=== PATIENT | female | born 1940 | race Caucasian/White ===

== ENCOUNTER 2017-03-07 22:11 | Inpatient (IN) | payer MEDICAID, MEDICARE ==
[~2017-03-07] VITALS: Ht 152.4 cm; Wt 74.9 kg
[~2017-03-07 22:11] MED LIST: ASPI-1159 PO; Aspirin PO; CLOP75TA33 PO; GABA-529 PO; LEVO50TA8 PO; LIP40 PO; MELO-106 PO; METO50TA5 PO; NITR0.4T SL; OMEP40CA34 PO; POTA10CA42 PO; PRED5DRO7 LEFTEYE; PRED5TAB48 PO
[2017-03-07] MEDS ORDERED: NITROGLYCERIN OINT 1GM/INCH UDPKT TD ONE (22:30)
[2017-03-07] MEDS ORDERED: ASPIRIN 81MG TABLET PO ONE (22:30)
[2017-03-07] MEDS ORDERED: MORPHINE SULFATE 2 MG/ML CPJ (NOT FOR IM USE) IV STA (22:59)
[2017-03-07 23:10] LABS: CLARITY URINE CLEAR (CLEAR); COLOR URINE YELLOW (YELLOW); GLUCOSE URINE NEGATIVE (NEGATIVE); KETONES URINE NEGATIVE (NEGATIVE); LEUKOCYTE ESTERASE URINE 2+ (NEGATIVE); NITRITE URINE NEGATIVE (NEGATIVE); OCCULT BLOOD URINE NEGATIVE (NEGATIVE); PROTEIN URINE NEGATIVE (NEGATIVE); SPECIFIC GRAVITY URINE 1.019 (1.005-1.030); UROBILINOGEN URINE 0.2 E.U./dL (0.2-1.0)
[2017-03-07 23:22] LABS: *AMPHETAMINES SCREEN URINE NEGATIVE (NEGATIVE); *BARBITURATES SCREEN URINE NEGATIVE (NEGATIVE); *BENZODIAZEPINES SCREEN URINE NEGATIVE (NEGATIVE); *COCAINE SCREEN URINE NEGATIVE (NEGATIVE); CANNABINOID URINE SCREEN NEGATIVE (NEGATIVE); METHADONE URINE SCREEN NEGATIVE (NEGATIVE); OPIATES URINE SCREEN PRESUMTIVE POSITIVE (NEGATIVE); PHENCYCLIDINE URINE SCREEN NEGATIVE (NEGATIVE)
[2017-03-07] MEDS ORDERED: MORPHINE SULFATE 10 MG/ML CPJ IV STA (23:22)
[2017-03-07 23:33] LABS: BASOPHILS % 0.6 % (0.0-2.0); EOSINOPHILS % 1.6 % (0.0-5.0); HEMOGLOBIN. 12.3 g/dL (12.0-16.0); LYMPHOCYTES % 16.1 % (20.0-50.0); MEAN CORPUSCULAR HEMOGLOBIN 31.2 pg (28.0-32.0); MEAN CORPUSCULAR VOLUME 94.1 fL (81.0-99.0); MEAN PLATELET VOLUME 8.4 fl (7.4-10.4); MONOCYTES % 9.8 % (2.0-8.0); NEUTROPHILS % 71.9 % (40.0-76.0); PLATELET 232 x1000/uL (130-400); RED BLOOD CELL COUNT 3.93 mill/uL (4.2-5.4); RED CELL DISTRIBUTION WIDTH 15.8 % (11.6-14.6)
[2017-03-07 23:44] LABS: INR 1.1; PROTHROMBIN TIME 11.2 sec (9.4-11.6)
[2017-03-07 23:45] LABS: CARBON DIOXIDE 26 mEq/L (21-32); CHLORIDE 104 mEq/L (98-107); ETHANOL BLOOD < 10 mg/dL; TROPONIN I < 0.02 ng/mL (0.00-0.04)
[2017-03-08] VITALS (8 sets, daily range): BP systolic 112–124; BP diastolic 63–78
[2017-03-08] MEDS ORDERED: LEVOFLOXACIN 750MG PREMIX 150 ML IV NR
[2017-03-08] MEDS ORDERED: ACETAMINOPHEN 325MG TABLET PO PRN ×2 (06:15→06:30)
[2017-03-08] MEDS ORDERED: DEXTROSE 50% WATER 50ML SYRINGE IV PRN (06:15)
[2017-03-08] MEDS ORDERED: BENA20TA3 PO (06:44)
[2017-03-08] MEDS ORDERED: NITROGLYCERIN 0.4MG TABLET SL SL PRN (06:45)
[2017-03-08] MEDS: INSULIN LISPRO 100 UNITS/ML SUBCUT SCH ×4 (08:10→21:00)
[2017-03-08] MEDS: OMEPRAZOLE 20MG CAPSULE EXTENDED RELEASE PO SCH (08:26)
[2017-03-08] MEDS: LEVOTHYROXINE SODIUM 50MCG TABLET PO SCH (08:26)
[2017-03-08] MEDS: CLOPIDOGREL 75MG TABLET PO SCH (08:26)
[2017-03-08] MEDS: POTASSIUM CHLORIDE 8 MEQ TABLET.SA PO SCH (08:27)
[2017-03-08] MEDS: BENAZEPRIL 20MG TABLET PO SCH (08:27)
[2017-03-08] MEDS: METOPROLOL TARTRATE 50MG TABLET PO SCH ×2 (08:28→21:18)
[2017-03-08] MEDS: ASPIRIN 81MG EC TABLET PO SCH (08:28)
[2017-03-08] MEDS: PREDNISONE 5MG TABLET PO SCH (08:28)
[2017-03-08] MEDS: BLOOD SUGAR DIAGNOSTIC STRIP TEST SCH ×4 (08:37→21:08)
[2017-03-08] MEDS: GABAPENTIN 100MG CAPSULE PO SCH ×2 (08:37→18:14)
[2017-03-08] MEDS ORDERED: NON FORMULARY PATIENT HOME MED EA PO SCH (09:00)
[2017-03-08] MEDS ORDERED: MEDICATION NOT ON FORMULARY EA (Prednisone 5 MG) PO SCH (09:00)
[2017-03-08] MEDS ORDERED: MEDICATION NOT ON FORMULARY EA (Omeprazole 40 MG) PO SCH (09:00)
[2017-03-08] MEDS ORDERED: ENOXAPARIN 80MG/0.8ML SYR SUBCUT SCH (09:05)
[2017-03-08 10:17] LABS: BASOPHILS % 0.6 % (0.0-2.0); EOSINOPHILS % 2.7 % (0.0-5.0); HEMOGLOBIN. 11.7 g/dL (12.0-16.0); LYMPHOCYTES % 17.2 % (20.0-50.0); MEAN CORPUSCULAR HEMOGLOBIN 30.6 pg (28.0-32.0); MEAN CORPUSCULAR VOLUME 94.4 fL (81.0-99.0); MEAN PLATELET VOLUME 8.4 fl (7.4-10.4); NEUTROPHILS % 70.5 % (40.0-76.0); PLATELET 221 x1000/uL (130-400); RED BLOOD CELL COUNT 3.81 mill/uL (4.2-5.4)
[2017-03-08 10:34] LABS: CARBON DIOXIDE 27 mEq/L (21-32); CHLORIDE 103 mEq/L (98-107); CREATINE KINASE 50 IU/L (26-192); CREATINE KINASE MB FRACTION 0.8 ng/mL (0.5-3.6); HDL CHOLESTEROL 40 mg/dL (40-59); LDL CHOLESTEROL 66 mg/dL (5-100); TROPONIN I < 0.02 ng/mL (0.00-0.04)
[2017-03-08] MEDS: HYDROCODONE/ACETAMINOPHEN 5/325MG TABLET PO PRN ×3 (12:47→23:29)
[2017-03-08 17:00] LABS: CREATINE KINASE 65 IU/L (26-192); CREATINE KINASE MB FRACTION 0.9 ng/mL (0.5-3.6); TROPONIN I < 0.02 ng/mL (0.00-0.04)
[2017-03-08] MEDS: SODIUM CHLORIDE 0.9% 1,000 ML IV SCH (21:18)
[2017-03-08] MEDS: ATORVASTATIN CALCIUM 40MG TABLET PO SCH (21:18)
[2017-03-08] MEDS ORDERED: LEVOFLOXACIN 250MG PREMIX 50 ML IV SCH (23:00)
[2017-03-09 04:00] VITALS: BP 149/74
[2017-03-09] MEDS: HYDROCODONE/ACETAMINOPHEN 5/325MG TABLET PO PRN ×4 (05:20→19:42)
[2017-03-09 06:45] LABS: PHOSPHORUS 2.5 mg/dL (2.5-4.9)
[2017-03-09 06:47] LABS: BASOPHILS % 0.4 % (0.0-2.0); EOSINOPHILS % 3.2 % (0.0-5.0); HEMATOCRIT. 33.5 % (36.0-48.0); LYMPHOCYTES % 20.4 % (20.0-50.0); MEAN CORPUSCULAR HEMOGLOBIN 30.8 pg (28.0-32.0); MEAN CORPUSCULAR VOLUME 94.3 fL (81.0-99.0); MEAN PLATELET VOLUME 8.8 fl (7.4-10.4); MONOCYTES % 8.5 % (2.0-8.0); NEUTROPHILS % 67.5 % (40.0-76.0); PLATELET 196 x1000/uL (130-400); RED BLOOD CELL COUNT 3.56 mill/uL (4.2-5.4); RED CELL DISTRIBUTION WIDTH 16.6 % (11.6-14.6)
[2017-03-09 07:30] VITALS: BP 123/56
[2017-03-09] MEDS: BLOOD SUGAR DIAGNOSTIC STRIP TEST SCH ×4 (07:40→20:37)
[2017-03-09] MEDS: INSULIN LISPRO 100 UNITS/ML SUBCUT SCH ×4 (08:10→20:37)
[2017-03-09] MEDS: PREDNISONE 5MG TABLET PO SCH (08:53)
[2017-03-09] MEDS: METOPROLOL TARTRATE 50MG TABLET PO SCH ×2 (08:53→20:37)
[2017-03-09] MEDS: CLOPIDOGREL 75MG TABLET PO SCH (08:53)
[2017-03-09] MEDS: ASPIRIN 81MG EC TABLET PO SCH (08:54)
[2017-03-09] MEDS: GABAPENTIN 100MG CAPSULE PO SCH ×2 (08:54→17:41)
[2017-03-09] MEDS: BENAZEPRIL 20MG TABLET PO SCH (08:54)
[2017-03-09] MEDS: POTASSIUM CHLORIDE 8 MEQ TABLET.SA PO SCH (08:54)
[2017-03-09] MEDS: LEVOTHYROXINE SODIUM 50MCG TABLET PO SCH (08:54)
[2017-03-09] MEDS: OMEPRAZOLE 20MG CAPSULE EXTENDED RELEASE PO SCH (08:55)
[2017-03-09] MEDS: ENOXAPARIN 80MG/0.8ML SYR SUBCUT SCH (08:57)
[2017-03-09 12:00] VITALS: BP 122/53
[2017-03-09 16:00] VITALS: BP 124/52
[2017-03-09] MEDS: SODIUM CHLORIDE 0.9% 1,000 ML IV SCH (16:18)
[2017-03-09] MEDS ORDERED: LACTULOSE 20G/30ML UDC PO PRN (17:00)
[2017-03-09 19:40] VITALS: BP 122/62
[2017-03-09] MEDS: ATORVASTATIN CALCIUM 40MG TABLET PO SCH (20:37)
[2017-03-09] MEDS ORDERED: LEVOFLOXACIN 250MG TABLET PO SCH (21:00)
[2017-03-10] VITALS: BP 118/59
[2017-03-10 03:23] VITALS: BP 109/61
[2017-03-10] MEDS: HYDROCODONE/ACETAMINOPHEN 5/325MG TABLET PO PRN ×2 (03:25→11:50)
[2017-03-10 06:08] LABS: BASOPHILS % 0.4 % (0.0-2.0); EOSINOPHILS % 3.5 % (0.0-5.0); HEMATOCRIT. 31.5 % (36.0-48.0); HEMOGLOBIN. 10.4 g/dL (12.0-16.0); LYMPHOCYTES % 21.3 % (20.0-50.0); MEAN CORPUSCULAR HEMOGLOBIN 31.1 pg (28.0-32.0); MEAN CORPUSCULAR VOLUME 94.5 fL (81.0-99.0); MEAN PLATELET VOLUME 8.4 fl (7.4-10.4); MONOCYTES % 8.2 % (2.0-8.0); NEUTROPHILS % 66.6 % (40.0-76.0); PLATELET 180 x1000/uL (130-400); RED BLOOD CELL COUNT 3.34 mill/uL (4.2-5.4); RED CELL DISTRIBUTION WIDTH 16.2 % (11.6-14.6)
[2017-03-10 06:42] LABS: CARBON DIOXIDE 24 mEq/L (21-32); CHLORIDE 109 mEq/L (98-107)
[2017-03-10] MEDS: BLOOD SUGAR DIAGNOSTIC STRIP TEST SCH ×2 (06:49→12:58)
[2017-03-10] MEDS: INSULIN LISPRO 100 UNITS/ML SUBCUT SCH ×2 (07:34→12:58)
[2017-03-10 08:00] VITALS: BP 138/70
[2017-03-10] MEDS: LEVOTHYROXINE SODIUM 50MCG TABLET PO SCH (08:40)
[2017-03-10] MEDS: GABAPENTIN 100MG CAPSULE PO SCH (08:40)
[2017-03-10] MEDS: PREDNISONE 5MG TABLET PO SCH (08:40)
[2017-03-10] MEDS: POTASSIUM CHLORIDE 8 MEQ TABLET.SA PO SCH (08:40)
[2017-03-10] MEDS: CLOPIDOGREL 75MG TABLET PO SCH (08:41)
[2017-03-10] MEDS: BENAZEPRIL 20MG TABLET PO SCH (08:41)
[2017-03-10] MEDS: ASPIRIN 81MG EC TABLET PO SCH (08:41)
[2017-03-10] MEDS: METOPROLOL TARTRATE 50MG TABLET PO SCH (08:41)
[2017-03-10] MEDS: ENOXAPARIN 80MG/0.8ML SYR SUBCUT SCH (08:42)
[2017-03-10] MEDS ORDERED: FAMOTIDINE 20MG TABLET PO SCH (09:00)
[2017-03-10 12:00] VITALS: BP 111/50
[2017-03-10] MEDS ORDERED: HYDR-523 PO (12:02)
[2017-03-10 13:02] VITALS: BP 111/50
== END 2017-03-10 14:12 | disposition home or self-care (01) | DRG 469 ==
LOC: ER 22:11 → 7WST 03-08 00:03 → ENRESERV 03-08 00:15
PROVIDERS: ADMIT Internal Medicine; ATTEND Internal Medicine
DX: N17.9 Acute kidney failure, unspecified (principal); E11.22 Type 2 diabetes mellitus with diabetic chronic kidney disease; I13.0 Hypertensive heart and chronic kidney disease with heart failure and stage 1 through stage 4 chronic kidney disease, or unspecified chronic kidney disease; K83.8 Other specified diseases of biliary tract; M48.54XA Collapsed vertebra, not elsewhere classified, thoracic region, initial encounter for fracture; I50.9 Heart failure, unspecified; R07.89 Other chest pain; N18.4 Chronic kidney disease, stage 4 (severe); N39.0 Urinary tract infection, site not specified; D64.9 Anemia, unspecified; E03.9 Hypothyroidism, unspecified; E66.9 Obesity, unspecified; E78.5 Hyperlipidemia, unspecified; M19.90 Unspecified osteoarthritis, unspecified site; Z79.899 Other long term (current) drug therapy; Z90.710 Acquired absence of both cervix and uterus; Z90.49 Acquired absence of other specified parts of digestive tract; Z88.5 Allergy status to narcotic agent; Z91.041 Radiographic dye allergy status; Z88.8 Allergy status to other drugs, medicaments and biological substances; Z82.61 Family history of arthritis; Z68.32 Body mass index [BMI] 32.0-32.9, adult
CPT/HCPCS: 36415; 71010; 71250; 72146; 76700; 78582; 80048; 80053; 80061; 80305; 81001; 82550; 82553; 82962; 83605; 83690; 83735; 83880; 84100; 84443; 84484; 85025; 85610; 86301; 87040; 87086; 93005; 93306; 93970; 96365; 96375; 99285; A9558; G0482; J1650; J1815; J1956; J2270; J7030; J7512

== ENCOUNTER → 2018-07-31 | Day surgery (SDC) | payer MEDICARE ==
[~2018-07-31] MED LIST changes: -Aspirin PO; +BENA20TA10 PO; +HYDR-523 PO; +LIDOCAINE HCL 1% 20ML VIAL (Pyxis) INJ ONE; +METO-539 PO; -METO50TA5 PO; +SODIUM BICARBONATE 4% (2.4MEQ) 5ML VIAL IV ONE
== END | disposition home or self-care (01) ==
LOC: RAD 10:26
PROVIDERS: ATTEND Surgery
DX: L72.8 Other follicular cysts of the skin and subcutaneous tissue (principal)
CPT/HCPCS: 20611; J3490

== ENCOUNTER 2018-08-09 14:24 | Inpatient (IN) | payer MEDICARE ==
[~2018-08-09] VITALS: Ht 152.4 cm; Wt 76.7 kg
[~2018-08-09 14:24] MED LIST changes: -LIDOCAINE HCL 1% 20ML VIAL (Pyxis) INJ ONE; -SODIUM BICARBONATE 4% (2.4MEQ) 5ML VIAL IV ONE
[2018-08-09] MEDS ORDERED: ASPIRIN 81MG TABLET PO ONE (15:15)
[2018-08-09 16:30] LABS: CHLORIDE 104 mEq/L (98-107)
[2018-08-09 16:35] LABS: D-DIMER 1.92 mg/L FEU (<0.50); INR 1.1; PROTHROMBIN TIME 10.6 sec (9.1-11.1)
[2018-08-09 16:52] LABS: BASOPHILS % 0.7 % (0.0-2.0); EOSINOPHILS % 1.6 % (0.0-5.0); HEMOGLOBIN. 12.8 g/dL (12.0-16.0); LYMPHOCYTES % 13.1 % (20.0-50.0); MEAN CORPUSCULAR HEMOGLOBIN 33.1 pg (28.0-32.0); MEAN PLATELET VOLUME 8.4 fl (7.4-10.4); MONOCYTES % 5.3 % (2.0-8.0); NEUTROPHILS % 79.3 % (40.0-76.0); PLATELET 123 x1000/uL (130-400); RED BLOOD CELL COUNT 3.85 mill/uL (4.2-5.4); RED CELL DISTRIBUTION WIDTH 14.4 % (11.6-14.6)
[2018-08-09] MEDS ORDERED: NITROGLYCERIN 0.4MG TABLET SL SL PRN (18:15)
[2018-08-09] MEDS ORDERED: NA PHOS,M-B/NA PHOS,DI-BA ENEMA 118ML PR PRN (19:15)
[2018-08-09] MEDS ORDERED: LORAZEPAM 2MG/ML CPJ IV PRN (19:15)
[2018-08-09] MEDS ORDERED: IPRATROPIUM/ALBUTEROL 0.5-3(2.5)MG/3ML NEB INH PRN (19:15)
[2018-08-09] MEDS ORDERED: GUAIFENESIN 200MG/10ML SUGAR FREE UDC PO PRN (19:15)
[2018-08-09] MEDS ORDERED: DOCUSATE SODIUM 100MG CAPSULE PO PRN (19:15)
[2018-08-09] MEDS ORDERED: ONDANSETRON HCL 4MG/2ML INJ IV PRN (19:15)
[2018-08-09] MEDS ORDERED: MORPHINE SULFATE 4 MG/ML CPJ (NOT FOR IM USE) IV PRN (19:37)
[2018-08-09 23:25] LABS: CREATINE KINASE 41 IU/L (26-192)
[2018-08-10] VITALS (8 sets, daily range): BP systolic 110–145; BP diastolic 57–75
[2018-08-10] MEDS ORDERED: DEXTROSE 50% WATER 50ML SYRINGE IV PRN (04:15)
[2018-08-10] MEDS: BLOOD SUGAR DIAGNOSTIC STRIP TEST SCH ×4 (06:13→21:38)
[2018-08-10] MEDS: INSULIN LISPRO 100 UNITS/ML SUBCUT SCH ×2 (06:13→21:00)
[2018-08-10] MEDS: ACETAMINOPHEN 325MG TABLET PO PRN ×5 (06:17→19:32)
[2018-08-10 06:50] LABS: BASOPHILS % 0.7 % (0.0-2.0); HEMOGLOBIN. 11.7 g/dL (12.0-16.0); LYMPHOCYTES % 14.9 % (20.0-50.0); MEAN CORPUSCULAR HEMOGLOBIN 32.8 pg (28.0-32.0); MEAN CORPUSCULAR VOLUME 100.5 fL (81.0-99.0); MEAN PLATELET VOLUME 8.1 fl (7.4-10.4); NEUTROPHILS % 71.4 % (40.0-76.0); PLATELET 203 x1000/uL (130-400); RED BLOOD CELL COUNT 3.58 mill/uL (4.2-5.4)
[2018-08-10 07:31] LABS: CHLORIDE 106 mEq/L (98-107)
[2018-08-10 07:42] LABS: LDL CHOLESTEROL 86 mg/dL (5-100)
[2018-08-10 07:44] LABS: CREATINE KINASE 42 IU/L (26-192)
[2018-08-10 07:45] LABS: HDL CHOLESTEROL 43 mg/dL (40-59)
[2018-08-10 07:50] LABS: CREATINE KINASE MB FRACTION < 1.0 ng/mL (0.5-3.6)
[2018-08-10] MEDS: AMLODIPINE 10MG TABLET PO SCH (09:13)
[2018-08-10] MEDS: ASPIRIN 81MG EC TABLET PO SCH (09:13)
[2018-08-10] MEDS: CLOPIDOGREL 75MG TABLET PO SCH (09:13)
[2018-08-10] MEDS: BENAZEPRIL 5MG TABLET PO SCH (10:00)
[2018-08-10] MEDS ORDERED: METOPROLOL TARTRATE 25MG TABLET PO SCH (10:00)
[2018-08-10] MEDS: PREDNISONE 5MG TABLET PO SCH (10:15)
[2018-08-10] MEDS: LEVOTHYROXINE SODIUM 50MCG TABLET PO SCH (10:15)
[2018-08-10] MEDS ORDERED: NITROGLYCERIN 0.4MG TABLET SL SL PRN (10:15)
[2018-08-10] MEDS ORDERED: MELOXICAM 7.5MG TABLET PO PRN (10:15)
[2018-08-10] MEDS ORDERED: FUROSEMIDE 40MG/4ML VIAL IVP NR (15:00)
[2018-08-10] MEDS ORDERED: ATORVASTATIN CALCIUM 40MG TABLET PO SCH (21:00)
[2018-08-10] MEDS: ATORVASTATIN CALCIUM 40MG TABLET PO SCH (21:25)
[2018-08-10] MEDS: METOPROLOL TARTRATE 25MG TABLET PO SCH (21:26)
[2018-08-10] MEDS: MORPHINE SULFATE 4 MG/ML CPJ (NOT FOR IM USE) IV PRN (21:27)
[2018-08-10] MEDS: NITROGLYCERIN OINT 1GM/INCH UDPKT TD SCH (21:38)
[2018-08-11] VITALS: BP 142/79
[2018-08-11 04:00] VITALS: BP 123/58
[2018-08-11] MEDS: LEVOTHYROXINE SODIUM 50MCG TABLET PO SCH (06:19)
[2018-08-11] MEDS: NITROGLYCERIN OINT 1GM/INCH UDPKT TD SCH ×3 (06:21→21:00)
[2018-08-11] MEDS: BLOOD SUGAR DIAGNOSTIC STRIP TEST SCH ×4 (06:21→20:58)
[2018-08-11] MEDS: INSULIN LISPRO 100 UNITS/ML SUBCUT SCH ×3 (06:22→21:00)
[2018-08-11 06:59] LABS: BASOPHILS % 0.6 % (0.0-2.0); EOSINOPHILS % 2.4 % (0.0-5.0); HEMATOCRIT. 35.2 % (36.0-48.0); HEMOGLOBIN. 11.8 g/dL (12.0-16.0); LYMPHOCYTES % 13.6 % (20.0-50.0); MEAN CORPUSCULAR HEMOGLOBIN 33.5 pg (28.0-32.0); MEAN CORPUSCULAR VOLUME 99.8 fL (81.0-99.0); MEAN PLATELET VOLUME 8.1 fl (7.4-10.4); MONOCYTES % 6.8 % (2.0-8.0); NEUTROPHILS % 76.6 % (40.0-76.0); PLATELET 197 x1000/uL (130-400); RED BLOOD CELL COUNT 3.52 mill/uL (4.2-5.4); RED CELL DISTRIBUTION WIDTH 13.8 % (11.6-14.6)
[2018-08-11 07:39] LABS: CHLORIDE 102 mEq/L (98-107)
[2018-08-11 08:00] VITALS: BP 140/81
[2018-08-11] MEDS: AMLODIPINE 10MG TABLET PO SCH (10:11)
[2018-08-11] MEDS: BENAZEPRIL 5MG TABLET PO SCH (10:11)
[2018-08-11] MEDS: CLOPIDOGREL 75MG TABLET PO SCH (10:11)
[2018-08-11] MEDS: ASPIRIN 81MG EC TABLET PO SCH (10:11)
[2018-08-11] MEDS: METOPROLOL TARTRATE 25MG TABLET PO SCH ×2 (10:11→21:03)
[2018-08-11] MEDS: PREDNISONE 5MG TABLET PO SCH (10:12)
[2018-08-11 12:00] VITALS: BP 141/60
[2018-08-11] MEDS ORDERED: NITROGLYCERIN 50MCG/ML 10ML VIAL (CATH LAB) IV ONE (12:00)
[2018-08-11] MEDS ORDERED: NICARDIPINE 100MCG/ML 10ML VIAL (CATH LAB) IV ONE (12:00)
[2018-08-11] MEDS ORDERED: HEPARIN SODIUM 1,000 UNIT/1ML VIAL IV ONE (12:00)
[2018-08-11 16:00] VITALS: BP 104/52
[2018-08-11] MEDS: MORPHINE SULFATE 4 MG/ML CPJ (NOT FOR IM USE) IV PRN ×2 (16:19→23:59)
[2018-08-11 20:00] VITALS: BP 130/65
[2018-08-11] MEDS: ATORVASTATIN CALCIUM 40MG TABLET PO SCH (20:54)
[2018-08-11] MEDS: ACETAMINOPHEN 325MG TABLET PO PRN (23:51)
[2018-08-12] VITALS (7 sets, daily range): BP systolic 103–144; BP diastolic 58–83
[2018-08-12] MEDS: NITROGLYCERIN OINT 1GM/INCH UDPKT TD SCH ×3 (06:05→21:58)
[2018-08-12] MEDS: BLOOD SUGAR DIAGNOSTIC STRIP TEST SCH ×4 (06:05→21:54)
[2018-08-12] MEDS: MORPHINE SULFATE 4 MG/ML CPJ (NOT FOR IM USE) IV PRN ×2 (06:05→18:34)
[2018-08-12] MEDS: LEVOTHYROXINE SODIUM 50MCG TABLET PO SCH (06:45)
[2018-08-12 06:57] LABS: BASOPHILS % 0.7 % (0.0-2.0); EOSINOPHILS % 4.3 % (0.0-5.0); HEMATOCRIT. 36.3 % (36.0-48.0); LYMPHOCYTES % 14.8 % (20.0-50.0); MEAN CORPUSCULAR HEMOGLOBIN 33.1 pg (28.0-32.0); MEAN CORPUSCULAR VOLUME 100.4 fL (81.0-99.0); MONOCYTES % 8.6 % (2.0-8.0); NEUTROPHILS % 71.6 % (40.0-76.0); PLATELET 212 x1000/uL (130-400); RED BLOOD CELL COUNT 3.61 mill/uL (4.2-5.4); RED CELL DISTRIBUTION WIDTH 14.2 % (11.6-14.6)
[2018-08-12] MEDS: INSULIN LISPRO 100 UNITS/ML SUBCUT SCH ×4 (06:58→21:00)
[2018-08-12 08:26] LABS: CHLORIDE 102 mEq/L (98-107)
[2018-08-12] MEDS: METOPROLOL TARTRATE 25MG TABLET PO SCH ×2 (09:00→21:58)
[2018-08-12] MEDS: BENAZEPRIL 5MG TABLET PO SCH (09:00)
[2018-08-12] MEDS: PREDNISONE 5MG TABLET PO SCH (09:00)
[2018-08-12] MEDS: ASPIRIN 81MG EC TABLET PO SCH (09:00)
[2018-08-12] MEDS: CLOPIDOGREL 75MG TABLET PO SCH (09:00)
[2018-08-12] MEDS: AMLODIPINE 10MG TABLET PO SCH (09:00)
[2018-08-12] MEDS: SODIUM CHLORIDE 0.45% 1,000 ML IV SCH ×2 (10:37→22:20)
[2018-08-12] MEDS ORDERED: HEPARIN SODIUM 1,000 UNIT/1ML VIAL IV ONE (12:00)
[2018-08-12] MEDS ORDERED: FAMOTIDINE 20MG/2ML VIAL IV ONE (12:41)
[2018-08-12] MEDS ORDERED: HYDROCORTISONE SOD SUCCINATE 250 MG/2 ML VIAL ONE (12:41)
[2018-08-12] MEDS ORDERED: DIPHENHYDRAMINE 50MG/ML VIAL ONE (12:41)
[2018-08-12] MEDS ORDERED: LIDOCAINE HCL 1% 20ML VIAL (Pyxis) INJ ONE (12:51)
[2018-08-12] MEDS ORDERED: IODIXANOL 320MG/ML 100 ML BOTTLE IV ONE (12:51)
[2018-08-12] MEDS ORDERED: MIDAZOLAM HCL 2 MG/2 ML VIAL ONE (12:54)
[2018-08-12] MEDS ORDERED: FENTANYL CITRATE/PF 50MCG/ML 2ML VIAL ONE (12:55)
[2018-08-12] MEDS ORDERED: IOHEXOL-300 100 ML BOTTLE ONE (13:45)
[2018-08-12] MEDS ORDERED: CLOPIDOGREL 75MG TABLET ONE ×2 (14:13→14:23)
[2018-08-12] MEDS ORDERED: ASPIRIN 325MG TABLET ONE ×2 (14:14→14:23)
[2018-08-12] MEDS ORDERED: ATROPINE SULFATE 1MG/10ML SYR IV PRN (14:30)
[2018-08-12] MEDS ORDERED: ONDANSETRON HCL 4MG/2ML INJ IV PRN (14:30)
[2018-08-12] MEDS ORDERED: ACETAMINOPHEN 325MG TABLET PO PRN (14:30)
[2018-08-12] MEDS: ACETAMINOPHEN 325MG TABLET PO PRN (17:20)
[2018-08-12] MEDS: ATORVASTATIN CALCIUM 40MG TABLET PO SCH (21:58)
[2018-08-13] VITALS (8 sets, daily range): BP systolic 108–137; BP diastolic 55–76
[2018-08-13] MEDS: INSULIN LISPRO 100 UNITS/ML SUBCUT SCH ×2 (06:22→11:13)
[2018-08-13] MEDS: BLOOD SUGAR DIAGNOSTIC STRIP TEST SCH ×2 (06:22→11:13)
[2018-08-13 06:38] LABS: BASOPHILS % 0.5 % (0.0-2.0); EOSINOPHILS % 1.5 % (0.0-5.0); HEMOGLOBIN. 11.6 g/dL (12.0-16.0); LYMPHOCYTES % 9.6 % (20.0-50.0); MEAN CORPUSCULAR VOLUME 99.5 fL (81.0-99.0); MONOCYTES % 5.4 % (2.0-8.0); PLATELET 204 x1000/uL (130-400); RED BLOOD CELL COUNT 3.52 mill/uL (4.2-5.4); RED CELL DISTRIBUTION WIDTH 13.7 % (11.6-14.6)
[2018-08-13 06:43] LABS: CHLORIDE 103 mEq/L (98-107)
[2018-08-13] MEDS: LEVOTHYROXINE SODIUM 50MCG TABLET PO SCH (06:43)
[2018-08-13] MEDS: NITROGLYCERIN OINT 1GM/INCH UDPKT TD SCH ×2 (06:44→13:50)
[2018-08-13] MEDS: SODIUM CHLORIDE 0.45% 1,000 ML IV SCH (07:15)
[2018-08-13] MEDS: BENAZEPRIL 5MG TABLET PO SCH (08:55)
[2018-08-13] MEDS: PREDNISONE 5MG TABLET PO SCH (08:55)
[2018-08-13] MEDS: AMLODIPINE 10MG TABLET PO SCH (08:56)
[2018-08-13] MEDS: CLOPIDOGREL 75MG TABLET PO SCH (08:56)
[2018-08-13] MEDS: METOPROLOL TARTRATE 25MG TABLET PO SCH (08:56)
[2018-08-13] MEDS ORDERED: ASPIRIN 325MG TABLET PO SCH (09:00)
[2018-08-13] MEDS ORDERED: CLOPIDOGREL 75MG TABLET PO SCH (09:00)
== END 2018-08-13 16:30 | disposition home health service (06) | DRG 175 ==
LOC: ER 14:24 → 5WST 18:24 → SUPCPDRO 19:09 → ENRESERV 08-10 01:48 → 3WST 08-12 14:25
PROVIDERS: ADMIT Hospitalist; ATTEND Hospitalist
PROC: 027035Z Dilation of Coronary Artery, One Artery with Two Drug-eluting Intraluminal Devices, Percutaneous Approach (ICD-10-PCS; principal; 2018-08-12)
PROC: 4A023N7 Measurement of Cardiac Sampling and Pressure, Left Heart, Percutaneous Approach (ICD-10-PCS; 2018-08-12)
PROC: B2151ZZ Fluoroscopy of Left Heart using Low Osmolar Contrast (ICD-10-PCS; 2018-08-12)
PROC: B2111ZZ Fluoroscopy of Multiple Coronary Arteries using Low Osmolar Contrast (ICD-10-PCS; 2018-08-12)
DX: I11.0 Hypertensive heart disease with heart failure (principal); I25.110 Atherosclerotic heart disease of native coronary artery with unstable angina pectoris; E11.39 Type 2 diabetes mellitus with other diabetic ophthalmic complication; M06.9 Rheumatoid arthritis, unspecified; I50.31 Acute diastolic (congestive) heart failure; E78.5 Hyperlipidemia, unspecified; I10 Essential (primary) hypertension; E03.9 Hypothyroidism, unspecified; M19.90 Unspecified osteoarthritis, unspecified site; H42 Glaucoma in diseases classified elsewhere; Z82.49 Family history of ischemic heart disease and other diseases of the circulatory system; Z83.3 Family history of diabetes mellitus; Z90.710 Acquired absence of both cervix and uterus; Z90.49 Acquired absence of other specified parts of digestive tract; Z88.6 Allergy status to analgesic agent; Z91.041 Radiographic dye allergy status; Z88.8 Allergy status to other drugs, medicaments and biological substances; Z79.899 Other long term (current) drug therapy; Z79.82 Long term (current) use of aspirin; Z79.02 Long term (current) use of antithrombotics/antiplatelets; Z79.52 Long term (current) use of systemic steroids; I25.2 Old myocardial infarction
CPT/HCPCS: 36415; 71045; 78582; 80048; 80061; 82550; 82553; 82962; 83735; 83880; 84484; 85347; 85379; 92928; 93005; 93306; 93458; 93970; 99285; A9558; C1725; C1760; C1769; C1874; C1887; C1893; J1200; J1644; J1720; J1940; J2250; J2270; J2405; J3010; J3490; J7512; Q9967

== ENCOUNTER 2019-02-16 19:00 | Inpatient (IN) | payer MEDICARE, MEDICAID ==
[~2019-02-16] VITALS: Ht 152.4 cm; Wt 73.5 kg
[~2019-02-16 19:00] MED LIST changes: -ASPI-1159 PO; +ASPI-1393 PO
[2019-02-16] MEDS ORDERED: ONDANSETRON HCL 4MG/2ML INJ IV STA (21:44)
[2019-02-16] MEDS ORDERED: MORPHINE SULFATE 4 MG/ML CPJ (NOT FOR IM USE) IV STA (21:44)
[2019-02-16] MEDS ORDERED: ASPIRIN 81MG TABLET PO ONE (21:45)
[2019-02-16] MEDS ORDERED: FUROSEMIDE 40MG/4ML VIAL IV ONE (21:45)
[2019-02-16 23:11] LABS: CLARITY URINE CLEAR (CLEAR); COLOR URINE YELLOW (YELLOW); KETONES URINE NEGATIVE (NEGATIVE); LEUKOCYTE ESTERASE URINE TRACE (NEGATIVE); NITRITE URINE NEGATIVE (NEGATIVE); OCCULT BLOOD URINE TRACE (NEGATIVE); PROTEIN URINE NEGATIVE (NEGATIVE); SPECIFIC GRAVITY URINE 1.015 (1.005-1.030); UROBILINOGEN URINE 0.2 E.U./dL (0.2-1.0)
[2019-02-16 23:55] LABS: BASOPHILS % 0.7 % (0.0-2.0); EOSINOPHILS % 1.3 % (0.0-5.0); HEMATOCRIT. 37.4 % (36.0-48.0); HEMOGLOBIN. 12.5 g/dL (12.0-16.0); LYMPHOCYTES % 11.1 % (20.0-50.0); MEAN CORPUSCULAR HEMOGLOBIN 32.6 pg (28.0-32.0); MEAN CORPUSCULAR VOLUME 97.7 fL (81.0-99.0); MEAN PLATELET VOLUME 7.9 fl (7.4-10.4); MONOCYTES % 7.9 % (2.0-8.0); PLATELET 229 x1000/uL (130-400); RED BLOOD CELL COUNT 3.83 mill/uL (4.2-5.4); RED CELL DISTRIBUTION WIDTH 15.5 % (11.6-14.6)
[2019-02-16 23:59] LABS: CHLORIDE 101 mEq/L (98-107)
[2019-02-17] VITALS (7 sets, daily range): BP systolic 112–160; BP diastolic 56–78
[2019-02-17 00:03] LABS: PARTIAL THROMBOPLASTIN TIME 33.6 sec (23.4-31.0); PROTHROMBIN TIME 9.9 sec (9.6-11.0)
[2019-02-17 00:07] LABS: CREATINE KINASE 38 IU/L (26-192)
[2019-02-17 00:12] LABS: CREATINE KINASE MB FRACTION < 1.0 ng/mL (0.5-3.6)
[2019-02-17] MEDS ORDERED: IPRATROPIUM/ALBUTEROL 0.5-3(2.5)MG/3ML NEB HHN PRN (03:30)
[2019-02-17] MEDS ORDERED: MELOXICAM 7.5MG TABLET PO PRN (03:45)
[2019-02-17] MEDS ORDERED: NITROGLYCERIN 0.4MG TABLET SL SL PRN (03:45)
[2019-02-17] MEDS ORDERED: DEXTROSE 50% WATER 50ML SYRINGE IV PRN (03:45)
[2019-02-17] MEDS: BLOOD SUGAR DIAGNOSTIC STRIP TEST SCH ×4 (06:42→21:00)
[2019-02-17] MEDS: INSULIN LISPRO 100 UNITS/ML SUBCUT SCH ×4 (07:56→21:00)
[2019-02-17] MEDS: LEVOTHYROXINE SODIUM 50MCG TABLET PO SCH (08:36)
[2019-02-17] MEDS: METOPROLOL TARTRATE 50MG TABLET PO SCH ×2 (08:37→22:18)
[2019-02-17] MEDS: ASPIRIN 81MG TABLET PO SCH (08:37)
[2019-02-17] MEDS: CLOPIDOGREL 75MG TABLET PO SCH (08:37)
[2019-02-17] MEDS: POTASSIUM CHLORIDE 8 MEQ TABLET.SA PO SCH (08:38)
[2019-02-17] MEDS: OMEPRAZOLE 20MG CAPSULE EXTENDED RELEASE PO SCH (08:38)
[2019-02-17] MEDS: GABAPENTIN 100MG CAPSULE PO SCH ×2 (08:39→17:18)
[2019-02-17] MEDS: CEFTRIAXONE 1 G PREMIX 50 ML IV SCH (08:39)
[2019-02-17] MEDS: PREDNISOLONE ACETATE 1% OPHTH DROPS 5ML LEFTEYE SCH (08:39)
[2019-02-17] MEDS: PREDNISONE 5MG TABLET PO SCH (08:39)
[2019-02-17 09:00] LABS: BASOPHILS % 0.8 % (0.0-2.0); EOSINOPHILS % 2.3 % (0.0-5.0); HEMATOCRIT. 39.9 % (36.0-48.0); HEMOGLOBIN. 13.3 g/dL (12.0-16.0); LYMPHOCYTES % 17.5 % (20.0-50.0); MEAN CORPUSCULAR HEMOGLOBIN 32.6 pg (28.0-32.0); MEAN CORPUSCULAR VOLUME 97.6 fL (81.0-99.0); MEAN PLATELET VOLUME 8.2 fl (7.4-10.4); MONOCYTES % 10.6 % (2.0-8.0); NEUTROPHILS % 68.8 % (40.0-76.0); PLATELET 239 x1000/uL (130-400); RED BLOOD CELL COUNT 4.09 mill/uL (4.2-5.4); RED CELL DISTRIBUTION WIDTH 15.2 % (11.6-14.6)
[2019-02-17] MEDS ORDERED: BENAZEPRIL 10MG TABLET PO SCH (09:00)
[2019-02-17] MEDS: FUROSEMIDE 40MG/4ML VIAL IVP SCH ×2 (09:44→17:18)
[2019-02-17] MEDS: HYDROCODONE/ACETAMINOPHEN 5/325MG TABLET PO PRN (09:45)
[2019-02-17] MEDS ORDERED: KETOROLAC 10MG TABLET PO NR (13:00)
[2019-02-17] MEDS: NITROGLYCERIN OINT 1GM/INCH UDPKT TD SCH ×2 (13:13→22:20)
[2019-02-17] MEDS ORDERED: ATORVASTATIN CALCIUM 40MG TABLET PO SCH (21:00)
[2019-02-18] VITALS: BP 113/63
[2019-02-18] MEDS: HYDROCODONE/ACETAMINOPHEN 5/325MG TABLET PO PRN ×2 (02:33→08:56)
[2019-02-18 04:00] VITALS: BP 122/78
[2019-02-18] MEDS: NITROGLYCERIN OINT 1GM/INCH UDPKT TD SCH (06:58)
[2019-02-18] MEDS: INSULIN LISPRO 100 UNITS/ML SUBCUT SCH (06:59)
[2019-02-18] MEDS: BLOOD SUGAR DIAGNOSTIC STRIP TEST SCH (06:59)
[2019-02-18 08:00] VITALS: BP 115/57
[2019-02-18 08:04] LABS: HEMATOCRIT. 35.7 % (36.0-48.0); HEMOGLOBIN. 12.3 g/dL (12.0-16.0); MEAN CORPUSCULAR HEMOGLOBIN 33.3 pg (28.0-32.0); MEAN CORPUSCULAR VOLUME 96.6 fL (81.0-99.0); MEAN PLATELET VOLUME 7.8 fl (7.4-10.4); PLATELET 239 x1000/uL (130-400); RED CELL DISTRIBUTION WIDTH 15.3 % (11.6-14.6)
[2019-02-18 08:28] LABS: CHLORIDE 97 mEq/L (98-107)
[2019-02-18] MEDS: GABAPENTIN 100MG CAPSULE PO SCH (08:39)
[2019-02-18] MEDS: ASPIRIN 81MG TABLET PO SCH (08:39)
[2019-02-18] MEDS: CLOPIDOGREL 75MG TABLET PO SCH (08:39)
[2019-02-18] MEDS: CEFTRIAXONE 1 G PREMIX 50 ML IV SCH (08:39)
[2019-02-18] MEDS: OMEPRAZOLE 20MG CAPSULE EXTENDED RELEASE PO SCH (08:39)
[2019-02-18] MEDS: POTASSIUM CHLORIDE 8 MEQ TABLET.SA PO SCH (08:40)
[2019-02-18] MEDS: LEVOTHYROXINE SODIUM 50MCG TABLET PO SCH (08:40)
[2019-02-18] MEDS: PREDNISONE 5MG TABLET PO SCH (08:40)
[2019-02-18] MEDS: FUROSEMIDE 40MG/4ML VIAL IVP SCH (08:40)
[2019-02-18] MEDS: PREDNISOLONE ACETATE 1% OPHTH DROPS 5ML LEFTEYE SCH (08:41)
[2019-02-18] MEDS: METOPROLOL TARTRATE 50MG TABLET PO SCH (09:00)
[2019-02-18] MEDS ORDERED: BENAZEPRIL 5MG TABLET PO SCH (09:00)
[2019-02-18 12:49] LABS: PLATELET ESTIMATE NORMAL
[2019-02-18 13:00] VITALS: BP 128/77
[2019-02-18 13:30] VITALS: BP 128/77
[2019-02-18] MEDS ORDERED: FUROSEMIDE 40MG/4ML VIAL IVP SCH (14:45)
[2019-02-19] MEDS ORDERED: FAMOTIDINE 20MG TABLET PO SCH (09:00)
== END 2019-02-18 14:20 | disposition home or self-care (01) | DRG 194 ==
LOC: ER 19:00 → 7WST 23:51 → EDBEDREQ 23:56 → EDBEDREQTM 23:56 → ENRESERV 02-17 00:53
PROVIDERS: ADMIT Internal Medicine; ATTEND Internal Medicine
DX: I11.0 Hypertensive heart disease with heart failure (principal); I48.0 Paroxysmal atrial fibrillation; E11.9 Type 2 diabetes mellitus without complications; I48.92 Unspecified atrial flutter; E03.9 Hypothyroidism, unspecified; E78.5 Hyperlipidemia, unspecified; H54.62 Unqualified visual loss, left eye, normal vision right eye; I50.33 Acute on chronic diastolic (congestive) heart failure; I25.10 Atherosclerotic heart disease of native coronary artery without angina pectoris; M06.9 Rheumatoid arthritis, unspecified; M19.012 Primary osteoarthritis, left shoulder; N28.9 Disorder of kidney and ureter, unspecified; Z79.84 Long term (current) use of oral hypoglycemic drugs; Z79.899 Other long term (current) drug therapy; I25.2 Old myocardial infarction; Z90.710 Acquired absence of both cervix and uterus; Z95.5 Presence of coronary angioplasty implant and graft; Z90.49 Acquired absence of other specified parts of digestive tract; Z98.42 Cataract extraction status, left eye; Z88.8 Allergy status to other drugs, medicaments and biological substances; Z91.041 Radiographic dye allergy status
CPT/HCPCS: 36415; 71045; 73030; 80048; 80061; 81003; 82550; 82553; 82962; 83605; 83880; 84443; 84484; 85651; 93005; 93306; 97162; 99285; J0696; J1815; J1940; J2270; J2405; J7512

== ENCOUNTER 2019-06-03 18:48 | Inpatient (IN) | payer MEDICARE, MEDICAID ==
[~2019-06-03] VITALS: Ht 152.4 cm; Wt 80.7 kg
[~2019-06-03 18:48] MED LIST changes: -ASPI-1393 PO; +ASPI-1497 PO; -BENA20TA10 PO; +OMEP40CA12 PO; -OMEP40CA34 PO
[2019-06-03] MEDS ORDERED: CLONIDINE 0.2MG TABLET PO ONE (19:45)
[2019-06-03 19:56] LABS: EOSINOPHILS % 3.8 % (0.0-5.0); HEMATOCRIT. 40.5 % (36.0-48.0); HEMOGLOBIN. 13.4 g/dL (12.0-16.0); LYMPHOCYTES % 10.5 % (20.0-50.0); MEAN CORPUSCULAR HEMOGLOBIN 33.1 pg (28.0-32.0); MEAN CORPUSCULAR VOLUME 100.4 fL (81.0-99.0); MEAN PLATELET VOLUME 7.6 fl (7.4-10.4); MONOCYTES % 8.1 % (2.0-8.0); NEUTROPHILS % 76.6 % (40.0-76.0); PLATELET 248 x1000/uL (130-400); RED BLOOD CELL COUNT 4.03 mill/uL (4.2-5.4); RED CELL DISTRIBUTION WIDTH 14.2 % (11.6-14.6)
[2019-06-03 20:02] LABS: CHLORIDE 106 mEq/L (98-107)
[2019-06-03 20:06] LABS: D-DIMER 1.98 mg/L FEU (<0.50); PARTIAL THROMBOPLASTIN TIME 29.9 sec (23.4-31.0)
[2019-06-03] MEDS ORDERED: FUROSEMIDE 40MG/4ML VIAL IV ONE (21:45)
[2019-06-03] MEDS ORDERED: NITROGLYCERIN OINT 1GM/INCH UDPKT TD ONE (21:45)
[2019-06-03] MEDS ORDERED: ASPIRIN 81MG TABLET PO ONE (21:45)
[2019-06-03] MEDS ORDERED: ACETAMINOPHEN 325MG TABLET PO ONE (23:30)
[2019-06-04] MEDS ORDERED: DOCUSATE SODIUM 100MG CAPSULE PO PRN (01:45)
[2019-06-04] MEDS ORDERED: ACETAMINOPHEN 325MG TABLET PO PRN ×2 (01:45→18:00)
[2019-06-04] MEDS ORDERED: CLONIDINE 0.1MG TABLET PO PRN (01:45)
[2019-06-04] MEDS: HYDROCODONE/ACETAMINOPHEN 5/325MG TABLET PO PRN ×2 (04:08→18:41)
[2019-06-04] MEDS: ONDANSETRON HCL 4MG/2ML INJ IV PRN (04:09)
[2019-06-04] MEDS: MORPHINE SULFATE 2 MG/ML CPJ (NOT FOR IM USE) IV PRN (04:10)
[2019-06-04] MEDS ORDERED: METOPROLOL TARTRATE 25MG TABLET PO NR (04:15)
[2019-06-04 07:15] LABS: CREATINE KINASE 39 IU/L (26-192)
[2019-06-04 07:16] LABS: CREATINE KINASE MB FRACTION < 1.0 ng/mL (0.5-3.6)
[2019-06-04 11:02] VITALS: BP 111/53
[2019-06-04 12:00] VITALS: BP 127/63
[2019-06-04] MEDS: FUROSEMIDE 40MG/4ML VIAL IV SCH (12:16)
[2019-06-04] MEDS: CLOPIDOGREL 75MG TABLET PO SCH (12:16)
[2019-06-04] MEDS: LEVOTHYROXINE SODIUM 50MCG TABLET PO SCH (12:19)
[2019-06-04] MEDS ORDERED: LISI-604 MT (13:46)
[2019-06-04 16:00] VITALS: BP 133/69
[2019-06-04 17:01] LABS: CREATINE KINASE 40 IU/L (26-192)
[2019-06-04 17:02] LABS: CREATINE KINASE MB FRACTION < 1.0 ng/mL (0.5-3.6)
[2019-06-04] MEDS: ENOXAPARIN 40MG/0.4ML SYR SUBCUT SCH (17:11)
[2019-06-04 20:00] VITALS: BP 120/60
[2019-06-04] MEDS ORDERED: METOPROLOL TARTRATE 25MG TABLET PO SCH (21:00)
[2019-06-04] MEDS: ATORVASTATIN CALCIUM 40MG TABLET PO SCH (21:22)
[2019-06-04] MEDS: KETOROLAC 15MG/ML VIAL IV PRN (21:27)
[2019-06-05] VITALS: BP 122/59
[2019-06-05] MEDS ORDERED: DEXTROSE 50% WATER 50ML SYRINGE IV PRN (00:45)
[2019-06-05] MEDS: KETOROLAC 15MG/ML VIAL IV PRN (03:37)
[2019-06-05 04:00] VITALS: BP 140/71
[2019-06-05] MEDS: BLOOD SUGAR DIAGNOSTIC STRIP TEST SCH ×4 (06:21→20:04)
[2019-06-05] MEDS: INSULIN LISPRO 100 UNITS/ML SUBCUT SCH ×4 (06:21→20:04)
[2019-06-05] MEDS: LEVOTHYROXINE SODIUM 50MCG TABLET PO SCH (06:26)
[2019-06-05 07:35] LABS: BASOPHILS % 0.5 % (0.0-2.0); EOSINOPHILS % 5.4 % (0.0-5.0); HEMATOCRIT. 37.7 % (36.0-48.0); HEMOGLOBIN. 12.3 g/dL (12.0-16.0); MEAN CORPUSCULAR HEMOGLOBIN 32.6 pg (28.0-32.0); MEAN CORPUSCULAR VOLUME 99.3 fL (81.0-99.0); MEAN PLATELET VOLUME 8.1 fl (7.4-10.4); MONOCYTES % 8.2 % (2.0-8.0); NEUTROPHILS % 71.9 % (40.0-76.0); PLATELET 210 x1000/uL (130-400); RED BLOOD CELL COUNT 3.79 mill/uL (4.2-5.4); RED CELL DISTRIBUTION WIDTH 13.9 % (11.6-14.6)
[2019-06-05 07:39] LABS: CHLORIDE 100 mEq/L (98-107)
[2019-06-05 07:57] LABS: LDL CHOLESTEROL 115 mg/dL (5-100)
[2019-06-05 07:59] LABS: HDL CHOLESTEROL 35 mg/dL (40-59)
[2019-06-05 08:00] VITALS: BP 168/96
[2019-06-05] MEDS: FUROSEMIDE 40MG/4ML VIAL IV SCH (08:54)
[2019-06-05] MEDS: ENOXAPARIN 40MG/0.4ML SYR SUBCUT SCH (08:55)
[2019-06-05] MEDS: CLOPIDOGREL 75MG TABLET PO SCH (08:55)
[2019-06-05] MEDS ORDERED: CLONIDINE 0.1MG TABLET PO PRN (09:15)
[2019-06-05 12:00] VITALS: BP 121/66
[2019-06-05] MEDS: HYDROCODONE/ACETAMINOPHEN 5/325MG TABLET PO PRN (14:47)
[2019-06-05 16:00] VITALS: BP 138/63
[2019-06-05] MEDS: MORPHINE SULFATE 2 MG/ML CPJ (NOT FOR IM USE) IV PRN ×2 (17:12→21:55)
[2019-06-05 20:00] VITALS: BP 117/65
[2019-06-05] MEDS: ATORVASTATIN CALCIUM 40MG TABLET PO SCH (20:22)
[2019-06-05] MEDS: AMLODIPINE 5MG TABLET PO SCH (20:22)
[2019-06-05] MEDS: ONDANSETRON HCL 4MG/2ML INJ IV PRN (22:07)
[2019-06-06] VITALS: BP 125/69
[2019-06-06 04:00] VITALS: BP 142/74
[2019-06-06] MEDS: MORPHINE SULFATE 2 MG/ML CPJ (NOT FOR IM USE) IV PRN ×3 (05:27→20:53)
[2019-06-06] MEDS: BLOOD SUGAR DIAGNOSTIC STRIP TEST SCH ×4 (06:19→20:53)
[2019-06-06] MEDS: INSULIN LISPRO 100 UNITS/ML SUBCUT SCH ×4 (06:19→21:51)
[2019-06-06] MEDS: LEVOTHYROXINE SODIUM 50MCG TABLET PO SCH (06:22)
[2019-06-06 08:00] VITALS: BP 124/68
[2019-06-06] MEDS: CLOPIDOGREL 75MG TABLET PO SCH (09:09)
[2019-06-06] MEDS: ENOXAPARIN 30MG/0.3ML SYR SUBCUT SCH (09:09)
[2019-06-06] MEDS: AMLODIPINE 5MG TABLET PO SCH ×2 (09:10→20:53)
[2019-06-06] MEDS: FUROSEMIDE 40MG/4ML VIAL IV SCH (09:10)
[2019-06-06 12:00] VITALS: BP 121/62
[2019-06-06 16:00] VITALS: BP_SYST 121; BP_SYST 122; BP_SYST 159; BP_DIAS 82; BP_DIAS 86; BP_DIAS 92
[2019-06-06 20:00] VITALS: BP 117/65
[2019-06-06] MEDS: HYDROCODONE/ACETAMINOPHEN 5/325MG TABLET PO PRN (23:08)
[2019-06-07] VITALS: BP 125/69
[2019-06-07] MEDS: MORPHINE SULFATE 2 MG/ML CPJ (NOT FOR IM USE) IV PRN (01:26)
[2019-06-07 04:00] VITALS: BP 113/51
[2019-06-07] MEDS: BLOOD SUGAR DIAGNOSTIC STRIP TEST SCH ×2 (06:19→11:30)
[2019-06-07] MEDS: LEVOTHYROXINE SODIUM 50MCG TABLET PO SCH (06:19)
[2019-06-07] MEDS: INSULIN LISPRO 100 UNITS/ML SUBCUT SCH ×2 (06:23→11:30)
[2019-06-07] MEDS: CLOPIDOGREL 75MG TABLET PO SCH (08:17)
[2019-06-07] MEDS: AMLODIPINE 5MG TABLET PO SCH (08:17)
[2019-06-07] MEDS: FUROSEMIDE 40MG/4ML VIAL IV SCH (08:17)
[2019-06-07] MEDS: ENOXAPARIN 30MG/0.3ML SYR SUBCUT SCH (08:18)
[2019-06-07 08:26] VITALS: BP 123/78
[2019-06-07] MEDS: HYDROCODONE/ACETAMINOPHEN 5/325MG TABLET PO PRN (09:19)
[2019-06-07 11:47] VITALS: BP 126/62
== END 2019-06-07 12:20 | disposition home or self-care (01) | DRG 203 ==
LOC: ER 20:09 → 8WST 23:40 → ENRESERV 06-04 08:04
PROVIDERS: ADMIT Hospitalist; ATTEND Hospitalist
DX: M94.0 Chondrocostal junction syndrome [Tietze] (principal); N17.9 Acute kidney failure, unspecified; I50.33 Acute on chronic diastolic (congestive) heart failure; E11.9 Type 2 diabetes mellitus without complications; M06.9 Rheumatoid arthritis, unspecified; I11.0 Hypertensive heart disease with heart failure; E03.9 Hypothyroidism, unspecified; I25.10 Atherosclerotic heart disease of native coronary artery without angina pectoris; H54.62 Unqualified visual loss, left eye, normal vision right eye; M19.90 Unspecified osteoarthritis, unspecified site; M50.30 Other cervical disc degeneration, unspecified cervical region; E78.5 Hyperlipidemia, unspecified; Z95.5 Presence of coronary angioplasty implant and graft; I25.2 Old myocardial infarction; Z88.5 Allergy status to narcotic agent; Z90.710 Acquired absence of both cervix and uterus; Z88.8 Allergy status to other drugs, medicaments and biological substances; Z88.6 Allergy status to analgesic agent; Z91.041 Radiographic dye allergy status; Z90.49 Acquired absence of other specified parts of digestive tract; Z98.42 Cataract extraction status, left eye
CPT/HCPCS: 36415; 71045; 72070; 78582; 80053; 80061; 82550; 82553; 82962; 83735; 83880; 84484; 85025; 85379; 93005; 93306; 93970; 97162; 97530; 99285; A9558; C1893; J1650; J1815; J1885; J1940; J2270; J2405; A4315

== ENCOUNTER → 2019-12-20 | Outpatient (CLI) | payer MEDICARE, MEDICAID ==
[~2019-12-20] MED LIST changes: +LISI-604 MT; -MELO-106 PO; -NITR0.4T SL; -PRED5DRO7 LEFTEYE
== END | disposition home or self-care (01) ==
LOC: LAB 10:20
PROVIDERS: ATTEND Specialist
DX: R05 Cough (principal); Z20.828 Contact with and (suspected) exposure to other viral communicable diseases
CPT/HCPCS: C9803; U0003

== ENCOUNTER 2019-12-22 10:07 | Inpatient (IN) | payer MEDICARE, MEDICAID ==
[~2019-12-22] VITALS: Ht 152.4 cm; Wt 76.2 kg
[2019-12-22] VITALS (11 sets, daily range): BP systolic 114–154; BP diastolic 70–93
[~2019-12-22 10:07] MED LIST changes: +HEPARIN SODIUM 1,000 UNIT/1ML VIAL IV ONE
[2019-12-22] MEDS ORDERED: DIPHENHYDRAMINE 50MG/ML VIAL ONE (10:48)
[2019-12-22] MEDS ORDERED: FENTANYL CITRATE/PF 50MCG/ML 2ML VIAL ONE (10:48)
[2019-12-22] MEDS ORDERED: MIDAZOLAM HCL 2 MG/2 ML VIAL ONE (10:48)
[2019-12-22] MEDS ORDERED: HYDROCORTISONE SOD SUCCINATE 250 MG/2 ML VIAL ONE (10:49)
[2019-12-22] MEDS ORDERED: LIDOCAINE HCL 1% 20ML VIAL (Pyxis) INJ ONE ×2 (10:49→13:58)
[2019-12-22] MEDS ORDERED: IODIXANOL 320MG/ML 100 ML BOTTLE IV ONE ×2 (10:50→13:58)
[2019-12-22] MEDS ORDERED: FAMOTIDINE 20MG/2ML VIAL IV ONE (10:50)
[2019-12-22] MEDS ORDERED: SITA1TAB2 MT (11:07)
[2019-12-22] MEDS ORDERED: BENA20TA10 MT (11:07)
[2019-12-22] MEDS ORDERED: FURO40TA5 MT (11:07)
[2019-12-22] MEDS ORDERED: HYDRALAZINE 20MG/ML VIAL ONE (13:00)
[2019-12-22] MEDS ORDERED: ASPIRIN 325MG EC TABLET PO ONE (13:22)
[2019-12-22] MEDS ORDERED: CLOPIDOGREL 75MG TABLET ONE (13:22)
[2019-12-22] MEDS ORDERED: ACETAMINOPHEN 325MG TABLET PO PRN (13:30)
[2019-12-22] MEDS ORDERED: ATROPINE SULFATE 1MG/10ML SYR IV PRN (13:30)
[2019-12-22] MEDS ORDERED: ONDANSETRON HCL 4MG/2ML INJ IV PRN (13:30)
[2019-12-22] MEDS ORDERED: NITROGLYCERIN 0.4MG TABLET SL SL ONE (13:53)
[2019-12-22] MEDS ORDERED: NITROGLYCERIN 0.4MG TABLET SL SL PRN (14:00)
[2019-12-22] MEDS ORDERED: ONDANSETRON HCL 4MG/2ML INJ ONE (14:05)
[2019-12-22] MEDS ORDERED: ZOLPIDEM TARTRATE 5MG TABLET PO PRN (15:15)
[2019-12-22] MEDS ORDERED: KETOROLAC 10MG TABLET PO NR (17:00)
[2019-12-22] MEDS ORDERED: SODIUM CHLORIDE 0.45% 1,000 ML IV ONE (17:15)
[2019-12-22] MEDS ORDERED: ATORVASTATIN CALCIUM 40MG TABLET PO SCH (21:00)
[2019-12-22] MEDS: LISINOPRIL 20MG TABLET PO SCH (21:24)
[2019-12-22] MEDS: METOPROLOL TARTRATE 50MG TABLET PO SCH (21:25)
[2019-12-22] MEDS: KETOROLAC 10MG TABLET PO PRN (21:26)
[2019-12-23] VITALS (8 sets, daily range): BP systolic 106–157; BP diastolic 53–83
[2019-12-23] MEDS ORDERED: OMEPRAZOLE 20MG CAPSULE EXTENDED RELEASE PO SCH (06:50)
[2019-12-23] MEDS ORDERED: LEVOTHYROXINE SODIUM 50MCG TABLET PO SCH (06:50)
[2019-12-23 07:23] LABS: BASOPHILS % 0.5 % (0.0-2.0); EOSINOPHILS % 1.8 % (0.0-5.0); HEMATOCRIT. 34.3 % (36.0-48.0); HEMOGLOBIN. 11.6 g/dL (12.0-16.0); MEAN CORPUSCULAR HEMOGLOBIN 34.6 pg (28.0-32.0); MEAN CORPUSCULAR VOLUME 102.4 fL (81.0-99.0); MEAN PLATELET VOLUME 8.3 fl (7.4-10.4); MONOCYTES % 6.6 % (2.0-8.0); NEUTROPHILS % 79.1 % (40.0-76.0); PLATELET 183 x1000/uL (130-400); RED BLOOD CELL COUNT 3.34 mill/uL (4.2-5.4); RED CELL DISTRIBUTION WIDTH 15.2 % (11.6-14.6)
[2019-12-23] MEDS: LISINOPRIL 20MG TABLET PO SCH (08:45)
[2019-12-23] MEDS: METOPROLOL TARTRATE 50MG TABLET PO SCH (08:46)
[2019-12-23] MEDS ORDERED: PREDNISONE 5MG TABLET PO SCH (09:00)
[2019-12-23] MEDS ORDERED: POTASSIUM CHLORIDE 8 MEQ PO SCH (09:00)
[2019-12-23] MEDS ORDERED: POTASSIUM CHLORIDE 8 MEQ TABLET.SA PO SCH (09:00)
[2019-12-23] MEDS ORDERED: GABAPENTIN 100MG CAPSULE PO SCH (09:00)
[2019-12-23] MEDS ORDERED: ASPIRIN 325MG TABLET PO SCH (09:00)
[2019-12-23] MEDS ORDERED: FUROSEMIDE 40MG TABLET PO SCH (09:00)
[2019-12-23] MEDS ORDERED: CLOPIDOGREL 75MG TABLET PO SCH (09:00)
[2019-12-23] MEDS ORDERED: ASPIRIN 81MG TABLET PO SCH (09:00)
[2019-12-23] MEDS: KETOROLAC 10MG TABLET PO PRN (10:50)
== END 2019-12-23 13:30 | disposition home health service (06) | DRG 175 ==
LOC: CCL 10:07 → 3WST 10:08
PROVIDERS: ADMIT Specialist; ATTEND Specialist
PROC: 4A023N7 Measurement of Cardiac Sampling and Pressure, Left Heart, Percutaneous Approach (ICD-10-PCS; principal; 2019-12-22)
PROC: B211YZZ Fluoroscopy of Multiple Coronary Arteries using Other Contrast (ICD-10-PCS; 2019-12-22)
PROC: 027135Z Dilation of Coronary Artery, Two Arteries with Two Drug-eluting Intraluminal Devices, Percutaneous Approach (ICD-10-PCS; 2019-12-22)
DX: I25.10 Atherosclerotic heart disease of native coronary artery without angina pectoris (principal); M35.00 Sjogren syndrome, unspecified; M06.9 Rheumatoid arthritis, unspecified; I12.9 Hypertensive chronic kidney disease with stage 1 through stage 4 chronic kidney disease, or unspecified chronic kidney disease; E11.22 Type 2 diabetes mellitus with diabetic chronic kidney disease; N18.9 Chronic kidney disease, unspecified; M50.90 Cervical disc disorder, unspecified, unspecified cervical region; E78.5 Hyperlipidemia, unspecified; K21.9 Gastro-esophageal reflux disease without esophagitis; I25.2 Old myocardial infarction; Z91.041 Radiographic dye allergy status; Y83.8 Other surgical procedures as the cause of abnormal reaction of the patient, or of later complication, without mention of misadventure at the time of the procedure; Y92.89 Other specified places as the place of occurrence of the external cause
CPT/HCPCS: 36415; 80048; 82962; 85025; 85347; 92928; 92929; 93005; 93458; C1760; C1769; C1874 ×2; C1887; C1893; J0360; J1200; J1644; J1720; J2250; J2405; J3010; J3490; J7512; Q9967

== ENCOUNTER 2020-11-01 16:42 | Inpatient (IN) | payer MEDICARE, MEDICAID ==
[~2020-11-01] VITALS: Ht 160 cm; Wt 68.9 kg
[~2020-11-01 16:42] MED LIST changes: +BENA20TA10 MT; +FURO40TA5 MT; -HEPARIN SODIUM 1,000 UNIT/1ML VIAL IV ONE; -LISI-604 MT; +LISI20TA31 MT; +SITA1TAB2 MT
[2020-11-01] MEDS ORDERED: ONDANSETRON HCL 4MG/2ML INJ IV STA (17:04)
[2020-11-01] MEDS ORDERED: FAMOTIDINE 20MG/2ML VIAL IV STA (17:18)
[2020-11-01 17:23] LABS: BASOPHILS % 0.3 % (0.0-2.0); EOSINOPHILS % 0.6 % (0.0-5.0); HEMATOCRIT. 30.4 % (36.0-48.0); HEMOGLOBIN. 10.2 g/dL (12.0-16.0); LYMPHOCYTES % 9.2 % (20.0-50.0); MEAN CORPUSCULAR HEMOGLOBIN 33.7 pg (28.0-32.0); MEAN CORPUSCULAR VOLUME 100.8 fL (81.0-99.0); MEAN PLATELET VOLUME 7.3 fl (7.4-10.4); MONOCYTES % 5.6 % (2.0-8.0); NEUTROPHILS % 84.3 % (40.0-76.0); PLATELET 284 x1000/uL (130-400); RED BLOOD CELL COUNT 3.02 mill/uL (4.2-5.4); RED CELL DISTRIBUTION WIDTH 14.1 % (11.6-14.6)
[2020-11-01 17:29] LABS: CHLORIDE 105 mEq/L (98-107)
[2020-11-01 17:30] LABS: PROTHROMBIN TIME 11.2 sec (9.6-11.0)
[2020-11-01] MEDS ORDERED: SODIUM CHLORIDE 0.9% 250 ML IV ONE (17:30)
[2020-11-01] MEDS ORDERED: MECLIZINE 12.5MG TABLET PO ONE (18:00)
[2020-11-01 18:54] LABS: CLARITY URINE CLEAR (CLEAR); COLOR URINE YELLOW (YELLOW); KETONES URINE NEGATIVE (NEGATIVE); LEUKOCYTE ESTERASE URINE NEGATIVE (NEGATIVE); NITRITE URINE NEGATIVE (NEGATIVE); OCCULT BLOOD URINE TRACE (NEGATIVE); PH URINE 5.5 (4.5-8.0); PROTEIN URINE NEGATIVE (NEGATIVE); SPECIFIC GRAVITY URINE 1.011 (1.005-1.030); UROBILINOGEN URINE 0.2 E.U./dL (0.2-1.0)
[2020-11-01] MEDS: ENOXAPARIN 40MG/0.4ML SYR SUBCUT SCH ×2 (20:45→21:00)
[2020-11-01] MEDS: CLONIDINE 0.1MG TABLET PO PRN (20:45)
[2020-11-01] MEDS: DEXT 5%/0.45% NACL 1000ML 1,000 ML IV SCH (20:47)
[2020-11-01] MEDS: PANTOPRAZOLE SODIUM 40 MG/VIAL IV SCH (20:47)
[2020-11-01 21:15] VITALS: BP 166/80
[2020-11-01 21:47] VITALS: BP 166/80
[2020-11-01] MEDS: KETOROLAC 15MG/ML VIAL IV PRN (23:42)
[2020-11-02] VITALS: BP 157/79
[2020-11-02 04:00] VITALS: BP 160/79
[2020-11-02] MEDS: KETOROLAC 15MG/ML VIAL IV PRN ×3 (05:11→22:33)
[2020-11-02 06:57] LABS: CHLORIDE 106 mEq/L (98-107)
[2020-11-02 06:59] LABS: BASOPHILS % 0.7 % (0.0-2.0); EOSINOPHILS % 3.9 % (0.0-5.0); HEMOGLOBIN. 9.2 g/dL (12.0-16.0); LYMPHOCYTES % 13.9 % (20.0-50.0); MEAN CORPUSCULAR HEMOGLOBIN 34.4 pg (28.0-32.0); MEAN CORPUSCULAR VOLUME 101.4 fL (81.0-99.0); MEAN PLATELET VOLUME 7.7 fl (7.4-10.4); MONOCYTES % 11.7 % (2.0-8.0); NEUTROPHILS % 69.8 % (40.0-76.0); PLATELET 249 x1000/uL (130-400); RED BLOOD CELL COUNT 2.67 mill/uL (4.2-5.4); RED CELL DISTRIBUTION WIDTH 13.7 % (11.6-14.6)
[2020-11-02 08:00] VITALS: BP 148/76
[2020-11-02] MEDS: DEXT 5%/0.45% NACL 1000ML 1,000 ML IV SCH ×2 (08:41→22:38)
[2020-11-02] MEDS: PANTOPRAZOLE SODIUM 40 MG/VIAL IV SCH (08:41)
[2020-11-02] MEDS: ONDANSETRON HCL 4MG/2ML INJ IV PRN ×2 (08:46→16:24)
[2020-11-02] MEDS ORDERED: HYDRALAZINE 20MG/ML VIAL IV PRN (11:15)
[2020-11-02 11:56] VITALS: BP 177/77
[2020-11-02] MEDS: FUROSEMIDE 40MG TABLET PO SCH (12:22)
[2020-11-02] MEDS: CLOPIDOGREL 75MG TABLET PO SCH (12:23)
[2020-11-02] MEDS: PREDNISONE 5MG TABLET PO SCH (12:23)
[2020-11-02] MEDS: LISINOPRIL 20MG TABLET PO SCH (12:23)
[2020-11-02] MEDS: LEVOTHYROXINE SODIUM 50MCG TABLET PO SCH (12:23)
[2020-11-02 16:00] VITALS: BP 172/75
[2020-11-02] MEDS: GABAPENTIN 100MG CAPSULE PO SCH (16:24)
[2020-11-02] MEDS: ATORVASTATIN CALCIUM 40MG TABLET PO SCH (16:24)
[2020-11-02] MEDS: CLONIDINE 0.1MG TABLET PO PRN (17:01)
[2020-11-02 20:00] VITALS: BP 137/69
[2020-11-02] MEDS: ENOXAPARIN 40MG/0.4ML SYR SUBCUT SCH (20:42)
[2020-11-03] VITALS: BP 139/70
[2020-11-03 04:00] VITALS: BP 148/70
[2020-11-03 06:37] LABS: BASOPHILS % 0.9 % (0.0-2.0); CHLORIDE 104 mEq/L (98-107); EOSINOPHILS % 4.9 % (0.0-5.0); HEMOGLOBIN. 9.3 g/dL (12.0-16.0); LYMPHOCYTES % 18.4 % (20.0-50.0); MEAN CORPUSCULAR HEMOGLOBIN 34.6 pg (28.0-32.0); MEAN CORPUSCULAR VOLUME 100.7 fL (81.0-99.0); MEAN PLATELET VOLUME 7.8 fl (7.4-10.4); MONOCYTES % 11.3 % (2.0-8.0); NEUTROPHILS % 64.5 % (40.0-76.0); PLATELET 257 x1000/uL (130-400); RED BLOOD CELL COUNT 2.68 mill/uL (4.2-5.4); RED CELL DISTRIBUTION WIDTH 13.9 % (11.6-14.6)
[2020-11-03 08:00] VITALS: BP 156/75
[2020-11-03] MEDS: PREDNISONE 5MG TABLET PO SCH (10:06)
[2020-11-03] MEDS: LISINOPRIL 20MG TABLET PO SCH (10:07)
[2020-11-03] MEDS: LEVOTHYROXINE SODIUM 50MCG TABLET PO SCH (10:07)
[2020-11-03] MEDS: ACETAMINOPHEN 325MG TABLET PO PRN ×2 (10:07→16:22)
[2020-11-03] MEDS: CLOPIDOGREL 75MG TABLET PO SCH (10:08)
[2020-11-03] MEDS: FAMOTIDINE 20MG/2ML VIAL IV SCH (10:08)
[2020-11-03] MEDS: GABAPENTIN 100MG CAPSULE PO SCH ×2 (10:08→16:20)
[2020-11-03] MEDS: ONDANSETRON HCL 4MG/2ML INJ IV PRN ×2 (10:08→20:29)
[2020-11-03] MEDS: FUROSEMIDE 40MG TABLET PO SCH (10:08)
[2020-11-03] MEDS: DEXT 5%/0.45% NACL 1000ML 1,000 ML IV SCH (10:18)
[2020-11-03 12:00] VITALS: BP 159/74
[2020-11-03 16:00] VITALS: BP 152/77
[2020-11-03] MEDS: ATORVASTATIN CALCIUM 40MG TABLET PO SCH (16:20)
[2020-11-03 20:00] VITALS: BP 159/78
[2020-11-03] MEDS: ENOXAPARIN 40MG/0.4ML SYR SUBCUT SCH (20:30)
[2020-11-03] MEDS: KETOROLAC 15MG/ML VIAL IV PRN (20:31)
[2020-11-03] MEDS ORDERED: LACTULOSE 20G/30ML UDC PO PRN (21:45)
[2020-11-03] MEDS ORDERED: POLYETHYLENE GLYCOL 3350 (17GM) 1 DOSE PACK PO PRN (21:45)
[2020-11-04] VITALS: BP 152/86
[2020-11-04] MEDS: DEXT 5%/0.45% NACL 1000ML 1,000 ML IV SCH ×2 (01:48→15:20)
[2020-11-04 04:00] VITALS: BP 149/88
[2020-11-04] MEDS: FAMOTIDINE 20MG/2ML VIAL IV SCH (07:45)
[2020-11-04] MEDS: GABAPENTIN 100MG CAPSULE PO SCH ×2 (07:45→16:32)
[2020-11-04] MEDS: FUROSEMIDE 40MG TABLET PO SCH (07:45)
[2020-11-04] MEDS: PREDNISONE 5MG TABLET PO SCH (07:46)
[2020-11-04] MEDS: CLOPIDOGREL 75MG TABLET PO SCH (07:46)
[2020-11-04] MEDS: LEVOTHYROXINE SODIUM 50MCG TABLET PO SCH (07:46)
[2020-11-04 07:59] VITALS: BP 155/77
[2020-11-04] MEDS: LISINOPRIL 20MG TABLET PO SCH (08:37)
[2020-11-04 11:58] VITALS: BP 148/71
[2020-11-04 16:11] VITALS: BP 152/74
[2020-11-04 20:00] VITALS: BP 150/70
[2020-11-04] MEDS: ONDANSETRON HCL 4MG/2ML INJ IV PRN (20:06)
[2020-11-04] MEDS: KETOROLAC 15MG/ML VIAL IV PRN (20:07)
[2020-11-04] MEDS: ATORVASTATIN CALCIUM 40MG TABLET PO SCH (20:08)
[2020-11-04] MEDS: ENOXAPARIN 40MG/0.4ML SYR SUBCUT SCH (20:08)
[2020-11-05] VITALS: BP 140/70
[2020-11-05] MEDS: DEXT 5%/0.45% NACL 1000ML 1,000 ML IV SCH ×2 (03:30→23:53)
[2020-11-05] MEDS: KETOROLAC 15MG/ML VIAL IV PRN ×2 (03:31→09:24)
[2020-11-05] MEDS: ONDANSETRON HCL 4MG/2ML INJ IV PRN ×2 (03:31→09:33)
[2020-11-05 04:00] VITALS: BP 151/73
[2020-11-05] MEDS: LEVOTHYROXINE SODIUM 50MCG TABLET PO SCH (06:44)
[2020-11-05] MEDS ORDERED: LEVOTHYROXINE SODIUM 50MCG TABLET PO SCH (07:20)
[2020-11-05 08:05] VITALS: BP 167/74
[2020-11-05] MEDS: FAMOTIDINE 20MG/2ML VIAL IV SCH (09:24)
[2020-11-05] MEDS: PREDNISONE 5MG TABLET PO SCH (09:24)
[2020-11-05] MEDS: GABAPENTIN 100MG CAPSULE PO SCH ×2 (09:25→17:57)
[2020-11-05] MEDS: FUROSEMIDE 40MG TABLET PO SCH (09:25)
[2020-11-05] MEDS: LISINOPRIL 20MG TABLET PO SCH (09:28)
[2020-11-05] MEDS: CLONIDINE 0.1MG TABLET PO PRN (09:33)
[2020-11-05] MEDS: CLOPIDOGREL 75MG TABLET PO SCH (09:33)
[2020-11-05 11:44] VITALS: BP 106/49
[2020-11-05 16:02] VITALS: BP 144/78
[2020-11-05 20:36] VITALS: BP 146/69
[2020-11-05] MEDS: ATORVASTATIN CALCIUM 40MG TABLET PO SCH (21:39)
[2020-11-06 00:09] VITALS: BP 149/78
[2020-11-06 04:00] VITALS: BP 134/94
[2020-11-06 06:31] LABS: BASOPHILS % 0.5 % (0.0-2.0); EOSINOPHILS % 2.4 % (0.0-5.0); HEMATOCRIT. 30.1 % (36.0-48.0); HEMOGLOBIN. 10.2 g/dL (12.0-16.0); LYMPHOCYTES % 11.2 % (20.0-50.0); MEAN CORPUSCULAR HEMOGLOBIN 33.9 pg (28.0-32.0); MEAN CORPUSCULAR VOLUME 99.7 fL (81.0-99.0); MEAN PLATELET VOLUME 7.4 fl (7.4-10.4); MONOCYTES % 10.8 % (2.0-8.0); NEUTROPHILS % 75.1 % (40.0-76.0); PLATELET 305 x1000/uL (130-400); RED BLOOD CELL COUNT 3.02 mill/uL (4.2-5.4); RED CELL DISTRIBUTION WIDTH 13.8 % (11.6-14.6)
[2020-11-06] MEDS: DEXT 5%/0.45% NACL 1000ML 1,000 ML IV SCH ×2 (06:55→21:14)
[2020-11-06 06:56] LABS: INR 1.1; PROTHROMBIN TIME 11.5 sec (9.6-11.0)
[2020-11-06] MEDS: LEVOTHYROXINE SODIUM 50MCG TABLET PO SCH (07:04)
[2020-11-06 07:23] LABS: CHLORIDE 96 mEq/L (98-107)
[2020-11-06 08:00] VITALS: BP 150/80
[2020-11-06] MEDS: FUROSEMIDE 40MG TABLET PO SCH (09:13)
[2020-11-06] MEDS: FAMOTIDINE 20MG/2ML VIAL IV SCH (09:13)
[2020-11-06] MEDS: GABAPENTIN 100MG CAPSULE PO SCH ×2 (09:13→18:07)
[2020-11-06] MEDS: LISINOPRIL 20MG TABLET PO SCH (09:13)
[2020-11-06] MEDS: PREDNISONE 5MG TABLET PO SCH (09:14)
[2020-11-06 12:00] VITALS: BP 139/68
[2020-11-06 16:00] VITALS: BP 138/75
[2020-11-06] MEDS ORDERED: MIDAZOLAM HCL 5 MG/5 ML VIAL IV PRN (16:48)
[2020-11-06] MEDS ORDERED: DIPHENHYDRAMINE 50MG/ML VIAL IV PRN (16:49)
[2020-11-06] MEDS ORDERED: FENTANYL CITRATE/PF 50MCG/ML 2ML VIAL IV PRN (16:50)
[2020-11-06 20:34] VITALS: BP 157/92
[2020-11-06] MEDS: ATORVASTATIN CALCIUM 40MG TABLET PO SCH (21:14)
[2020-11-07] VITALS (7 sets, daily range): BP systolic 110–175; BP diastolic 74–86
[2020-11-07] MEDS: ACETAMINOPHEN 325MG TABLET PO PRN (00:29)
[2020-11-07] MEDS: LEVOTHYROXINE SODIUM 50MCG TABLET PO SCH (06:04)
[2020-11-07 06:14] LABS: BASOPHILS % 0.5 % (0.0-2.0); EOSINOPHILS % 3.1 % (0.0-5.0); HEMATOCRIT. 31.6 % (36.0-48.0); LYMPHOCYTES % 10.9 % (20.0-50.0); MEAN CORPUSCULAR HEMOGLOBIN 35.2 pg (28.0-32.0); MEAN CORPUSCULAR VOLUME 100.8 fL (81.0-99.0); MEAN PLATELET VOLUME 7.5 fl (7.4-10.4); MONOCYTES % 11.1 % (2.0-8.0); NEUTROPHILS % 74.4 % (40.0-76.0); PLATELET 288 x1000/uL (130-400); RED BLOOD CELL COUNT 3.14 mill/uL (4.2-5.4); RED CELL DISTRIBUTION WIDTH 13.8 % (11.6-14.6)
[2020-11-07 06:39] LABS: CHLORIDE 99 mEq/L (98-107)
[2020-11-07] MEDS: LISINOPRIL 20MG TABLET PO SCH (08:49)
[2020-11-07] MEDS: ONDANSETRON HCL 4MG/2ML INJ IV PRN (08:49)
[2020-11-07] MEDS: FUROSEMIDE 40MG TABLET PO SCH (08:50)
[2020-11-07] MEDS: PREDNISONE 5MG TABLET PO SCH (08:50)
[2020-11-07] MEDS: GABAPENTIN 100MG CAPSULE PO SCH (08:50)
[2020-11-07] MEDS: DEXT 5%/0.45% NACL 1000ML 1,000 ML IV SCH (08:51)
[2020-11-07] MEDS ORDERED: FAMOTIDINE 20MG TABLET PO SCH (09:00)
[2020-11-07] MEDS ORDERED: TRAMADOL 50MG TABLET PO PRN (11:15)
[2020-11-07] MEDS ORDERED: LOPERAMIDE HCL 2MG CAPSULE PO NR (11:15)
[2020-11-07] MEDS: CLONIDINE 0.1MG TABLET PO PRN (15:18)
== END 2020-11-07 15:55 | disposition home health service (06) ==
LOC: ER 16:57 → 6WST 18:42 → EDBEDREQTM 18:44 → EDBEDREQ 18:44 → ENRESERV 20:11
PROVIDERS: ADMIT Hospitalist; ATTEND Hospitalist
DX: K80.50 Calculus of bile duct without cholangitis or cholecystitis without obstruction (principal); E43 Unspecified severe protein-calorie malnutrition; M48.54XA Collapsed vertebra, not elsewhere classified, thoracic region, initial encounter for fracture; D53.9 Nutritional anemia, unspecified; E87.1 Hypo-osmolality and hyponatremia; E11.9 Type 2 diabetes mellitus without complications; E03.9 Hypothyroidism, unspecified; K76.9 Liver disease, unspecified; R74.01 Elevation of levels of liver transaminase levels; Z20.822 Contact with and (suspected) exposure to COVID-19; I10 Essential (primary) hypertension; Z82.49 Family history of ischemic heart disease and other diseases of the circulatory system; Z88.5 Allergy status to narcotic agent; Z88.8 Allergy status to other drugs, medicaments and biological substances; Z91.041 Radiographic dye allergy status; Z79.891 Long term (current) use of opiate analgesic; Z79.899 Other long term (current) drug therapy; Z79.82 Long term (current) use of aspirin; Z79.890 Hormone replacement therapy; Z90.49 Acquired absence of other specified parts of digestive tract; Z90.710 Acquired absence of both cervix and uterus; Z68.26 Body mass index [BMI] 26.0-26.9, adult
CPT/HCPCS: 36415; 71045; 74176; 74181; 76700; 80048; 80053; 80076; 81003; 82248; 83880; 84484; 85025; 87426; 93005; 93970; 99291; C1893; C9113; J1650; J1885; J2405; J3490; J7050; J7512; J8597

== ENCOUNTER 2021-05-20 11:19 | Inpatient (IN) | payer MEDICARE, MEDICAID ==
[~2021-05-20] VITALS: Ht 157.5 cm; Wt 74.8 kg
[~2021-05-20 11:19] MED LIST changes: -OMEP40CA12 PO; +OMEP40CA20 PO
[2021-05-20] MEDS ORDERED: ASPIRIN 81MG TABLET PO ONE (12:30)
[2021-05-20 13:04] LABS: BASOPHILS % 0.5 % (0.0-2.0); EOSINOPHILS % 4.9 % (0.0-5.0); HEMATOCRIT. 35.7 % (36.0-48.0); HEMOGLOBIN. 11.9 g/dL (12.0-16.0); LYMPHOCYTES % 18.6 % (20.0-50.0); MEAN CORPUSCULAR HEMOGLOBIN 33.3 pg (28.0-32.0); MEAN CORPUSCULAR VOLUME 100.3 fL (81.0-99.0); MEAN PLATELET VOLUME 8.7 fl (7.4-10.4); MONOCYTES % 11.5 % (2.0-8.0); NEUTROPHILS % 64.5 % (40.0-76.0); PLATELET 187 x1000/uL (130-400); RED BLOOD CELL COUNT 3.56 mill/uL (4.2-5.4); RED CELL DISTRIBUTION WIDTH 15.4 % (11.6-14.6)
[2021-05-20 13:18] LABS: CHLORIDE 106 mEq/L (98-107)
[2021-05-20 14:04] LABS: CLARITY URINE CLEAR (CLEAR); COLOR URINE YELLOW (YELLOW); KETONES URINE NEGATIVE (NEGATIVE); LEUKOCYTE ESTERASE URINE NEGATIVE (NEGATIVE); NITRITE URINE NEGATIVE (NEGATIVE); OCCULT BLOOD URINE TRACE (NEGATIVE); PROTEIN URINE 2+ (NEGATIVE); SPECIFIC GRAVITY URINE 1.013 (1.005-1.030); UROBILINOGEN URINE 0.2 E.U./dL (0.2-1.0)
[2021-05-20] MEDS ORDERED: DIPHENHYDRAMINE 50MG/ML VIAL IV PRN (20:15)
[2021-05-20] MEDS ORDERED: ZOLPIDEM TARTRATE 5MG TABLET PO PRN (20:15)
[2021-05-20] MEDS ORDERED: ONDANSETRON HCL 4MG/2ML INJ IV PRN (20:15)
[2021-05-20] MEDS ORDERED: MAGNESIUM/ALUMINUM HYDROXIDE/SIMETHICONE 30ML UDC PO PRN (20:15)
[2021-05-20] MEDS ORDERED: ACETAMINOPHEN 325MG TABLET PO PRN (20:15)
[2021-05-20] MEDS ORDERED: ENOXAPARIN 40MG/0.4ML SYR SUBCUT SCH (21:00)
[2021-05-20] MEDS ORDERED: OMEPRAZOLE 20MG CAPSULE EXTENDED RELEASE PO SCH (21:00)
[2021-05-21] MEDS: KETOROLAC 30MG/ML VIAL IV PRN ×2 (03:02→16:23)
[2021-05-21] MEDS: SODIUM CHLORIDE 0.9% INJ 3ML FLUSH IVF SCH ×4 (06:00→22:08)
[2021-05-21] MEDS: PANTOPRAZOLE 40MG DR TABLET PO SCH ×3 (06:30→20:45)
[2021-05-21 08:00] VITALS: BP 131/82
[2021-05-21] MEDS: LEVOTHYROXINE SODIUM 50MCG TABLET PO SCH (09:28)
[2021-05-21] MEDS: LISINOPRIL 20MG TABLET PO SCH (09:29)
[2021-05-21] MEDS: CLOPIDOGREL 75MG TABLET PO SCH (09:29)
[2021-05-21] MEDS: ASPIRIN 81MG EC TABLET PO SCH (09:29)
[2021-05-21 10:23] VITALS: BP 131/82
[2021-05-21] MEDS ORDERED: PNEUMOCOCCAL 23-VAL P-SAC VAC 0.5 ML IM ONE (12:00)
[2021-05-21] MEDS ORDERED: INFLUENZA VACCINE 05/PF 0.5 ML SYRINGE IM ONE (12:00)
[2021-05-21 12:02] VITALS: BP 190/94
[2021-05-21] MEDS: HYDRALAZINE 20MG/ML VIAL IV PRN ×2 (12:07→16:24)
[2021-05-21 16:14] VITALS: BP 170/87
[2021-05-21] MEDS: NITROGLYCERIN OINT 1GM/INCH UDPKT TD SCH ×2 (16:24→22:07)
[2021-05-21] MEDS: AMLODIPINE 5MG TABLET PO SCH ×2 (16:24→22:07)
[2021-05-21] MEDS ORDERED: DILTIAZEM HCL 5MG/ML 5ML VIAL IV NR (18:00)
[2021-05-21 18:21] VITALS: BP 131/92
[2021-05-21 20:00] VITALS: BP 123/73
[2021-05-21] MEDS: ATORVASTATIN CALCIUM 40MG TABLET PO SCH (20:46)
[2021-05-22] VITALS: BP 146/72
[2021-05-22] MEDS: ACETAMINOPHEN 325MG TABLET PO PRN ×2 (01:55→10:40)
[2021-05-22] MEDS: KETOROLAC 30MG/ML VIAL IV PRN ×2 (03:47→13:30)
[2021-05-22 04:58] VITALS: BP 140/78
[2021-05-22] MEDS: NITROGLYCERIN OINT 1GM/INCH UDPKT TD SCH ×3 (05:06→21:30)
[2021-05-22] MEDS: SODIUM CHLORIDE 0.9% INJ 3ML FLUSH IVF SCH ×3 (05:07→21:31)
[2021-05-22 08:00] VITALS: BP 135/69
[2021-05-22] MEDS ORDERED: HEPARIN SODIUM 1,000 UNIT/1ML VIAL IV ONE ×2 (10:00→14:38)
[2021-05-22] MEDS ORDERED: NICARDIPINE 100MCG/ML 10ML VIAL (CATH LAB) IV ONE (10:00)
[2021-05-22] MEDS ORDERED: NITROGLYCERIN 50MCG/ML 10ML VIAL (CATH LAB) IV ONE (10:00)
[2021-05-22] MEDS: AMLODIPINE 5MG TABLET PO SCH ×2 (10:33→20:50)
[2021-05-22] MEDS: CLOPIDOGREL 75MG TABLET PO SCH (10:33)
[2021-05-22] MEDS: PANTOPRAZOLE 40MG DR TABLET PO SCH ×2 (10:33→20:51)
[2021-05-22] MEDS: ASPIRIN 81MG EC TABLET PO SCH (10:34)
[2021-05-22] MEDS: LISINOPRIL 20MG TABLET PO SCH (10:34)
[2021-05-22] MEDS: LEVOTHYROXINE SODIUM 50MCG TABLET PO SCH (10:34)
[2021-05-22] MEDS: SODIUM CHLORIDE 0.45% 1,000 ML IV SCH (11:03)
[2021-05-22 11:41] LABS: BASOPHILS % 0.3 % (0.0-2.0); EOSINOPHILS % 2.7 % (0.0-5.0); HEMATOCRIT. 35.8 % (36.0-48.0); HEMOGLOBIN. 11.8 g/dL (12.0-16.0); MEAN CORPUSCULAR HEMOGLOBIN 33.5 pg (28.0-32.0); MEAN CORPUSCULAR VOLUME 101.5 fL (81.0-99.0); MONOCYTES % 10.4 % (2.0-8.0); NEUTROPHILS % 78.6 % (40.0-76.0); RED BLOOD CELL COUNT 3.53 mill/uL (4.2-5.4); RED CELL DISTRIBUTION WIDTH 15.8 % (11.6-14.6)
[2021-05-22 12:00] VITALS: BP 157/88
[2021-05-22 12:04] LABS: PLATELET 202 x1000/uL (130-400)
[2021-05-22] MEDS ORDERED: ASPIRIN/SOD BICARB/CITRIC ACID 324MG TAB EFF ONE (13:27)
[2021-05-22] MEDS ORDERED: LIDOCAINE HCL 1% 20ML VIAL (Pyxis) INJ ONE (13:37)
[2021-05-22] MEDS ORDERED: IODIXANOL 320MG/ML 100 ML BOTTLE IV ONE (13:38)
[2021-05-22] MEDS ORDERED: FAMOTIDINE 20MG/2ML VIAL IV ONE (13:50)
[2021-05-22] MEDS ORDERED: DIPHENHYDRAMINE 50MG/ML VIAL ONE (13:51)
[2021-05-22] MEDS ORDERED: HYDROCORTISONE SOD SUCCINATE 250 MG/2 ML VIAL ONE (13:53)
[2021-05-22] MEDS ORDERED: MIDAZOLAM HCL 2 MG/2 ML VIAL ONE (14:06)
[2021-05-22] MEDS ORDERED: FENTANYL CITRATE/PF 50MCG/ML 2ML VIAL ONE (14:06)
[2021-05-22 16:00] VITALS: BP 119/59
[2021-05-22 20:00] VITALS: BP 152/89
[2021-05-22] MEDS: ATORVASTATIN CALCIUM 40MG TABLET PO SCH (20:50)
[2021-05-23] VITALS: BP 136/77
[2021-05-23 04:00] VITALS: BP 143/85
[2021-05-23] MEDS: SODIUM CHLORIDE 0.9% INJ 3ML FLUSH IVF SCH ×2 (06:06→14:20)
[2021-05-23] MEDS: LEVOTHYROXINE SODIUM 50MCG TABLET PO SCH (06:06)
[2021-05-23] MEDS: NITROGLYCERIN OINT 1GM/INCH UDPKT TD SCH ×2 (06:06→14:20)
[2021-05-23] MEDS: PANTOPRAZOLE 40MG DR TABLET PO SCH (06:09)
[2021-05-23 08:00] VITALS: BP 151/87
[2021-05-23] MEDS: CLOPIDOGREL 75MG TABLET PO SCH (08:44)
[2021-05-23] MEDS: AMLODIPINE 5MG TABLET PO SCH (08:44)
[2021-05-23] MEDS: LISINOPRIL 20MG TABLET PO SCH (08:44)
[2021-05-23] MEDS: ASPIRIN 81MG EC TABLET PO SCH (08:44)
[2021-05-23 12:00] VITALS: BP 152/84
[2021-05-23] MEDS ORDERED: AMLO5TAB88 PO (13:23)
[2021-05-23] MEDS: SODIUM CHLORIDE 0.45% 1,000 ML IV SCH (14:21)
[2021-05-23 14:48] VITALS: BP 152/84
[2021-05-23 16:00] VITALS: BP 146/87
[2021-05-23] MEDS ORDERED: INFLUENZA VACCINE 05/PF 0.5 ML SYRINGE IM ONE (16:00)
[2021-05-23] MEDS ORDERED: PNEUMOCOCCAL 23-VAL P-SAC VAC 0.5 ML IM ONE (16:00)
== END 2021-05-23 16:30 | disposition home or self-care (01) | DRG 191 ==
LOC: ER 11:35 → MICUSO 16:10 → 8WST 05-21 09:00
PROVIDERS: ADMIT Internal Medicine; ATTEND Internal Medicine
PROC: 4A023N7 Measurement of Cardiac Sampling and Pressure, Left Heart, Percutaneous Approach (ICD-10-PCS; principal; 2021-05-22)
PROC: B211YZZ Fluoroscopy of Multiple Coronary Arteries using Other Contrast (ICD-10-PCS; 2021-05-22)
DX: I25.110 Atherosclerotic heart disease of native coronary artery with unstable angina pectoris (principal); I11.0 Hypertensive heart disease with heart failure; E44.1 Mild protein-calorie malnutrition; I50.9 Heart failure, unspecified; R07.89 Other chest pain; D63.8 Anemia in other chronic diseases classified elsewhere; E03.9 Hypothyroidism, unspecified; E11.9 Type 2 diabetes mellitus without complications; E78.00 Pure hypercholesterolemia, unspecified; E87.5 Hyperkalemia; Z20.822 Contact with and (suspected) exposure to COVID-19; M06.9 Rheumatoid arthritis, unspecified; E78.5 Hyperlipidemia, unspecified; H54.40 Blindness, one eye, unspecified eye; I25.2 Old myocardial infarction; Z95.5 Presence of coronary angioplasty implant and graft; Z79.84 Long term (current) use of oral hypoglycemic drugs; Z86.73 Personal history of transient ischemic attack (TIA), and cerebral infarction without residual deficits; Z82.3 Family history of stroke; Z88.8 Allergy status to other drugs, medicaments and biological substances; Z91.041 Radiographic dye allergy status; Z88.6 Allergy status to analgesic agent; Z90.49 Acquired absence of other specified parts of digestive tract; Z90.710 Acquired absence of both cervix and uterus; Z68.30 Body mass index [BMI] 30.0-30.9, adult
CPT/HCPCS: 36415; 71045; 80048; 80053; 81003; 83880; 84132; 84484; 85025; 87426; 90686; 90732; 93005; 93306; 93458; 93970; 99285; C1760; C1769; C1887; C1893; J0360; J1200; J1644; J1720; J1885; J2250; J3010; J3490; Q9967

== ENCOUNTER 2021-11-14 06:56 | Inpatient (IN) | payer MEDICARE, MEDICAID ==
[~2021-11-14] VITALS: Ht 162.6 cm; Wt 73.7 kg
[2021-11-14] VITALS (41 sets, daily range): BP systolic 145–183; BP diastolic 71–106
[~2021-11-14 06:56] MED LIST changes: +AMLO5TAB88 PO; +BENA-8 MT; -BENA20TA10 MT
[2021-11-14] MEDS ORDERED: SUCCINYLCHOLINE CHLORIDE 200MG/10ML IV ONE (07:30)
[2021-11-14] MEDS ORDERED: ETOMIDATE 2MG/ML 10ML VIAL IV ONE (07:30)
[2021-11-14] MEDS ORDERED: PROPOFOL 10MG/ML 100ML 100 ML IV ONE (07:30)
[2021-11-14 07:44] LABS: EOSINOPHILS % 2.5 % (0.0-5.0); HEMATOCRIT. 39.1 % (36.0-48.0); HEMOGLOBIN. 12.8 g/dL (12.0-16.0); LYMPHOCYTES % 31.2 % (20.0-50.0); MEAN CORPUSCULAR HEMOGLOBIN 33.2 pg (28.0-32.0); MEAN CORPUSCULAR VOLUME 101.7 fL (81.0-99.0); MONOCYTES % 5.2 % (2.0-8.0); NEUTROPHILS % 60.1 % (40.0-76.0); PLATELET 220 x1000/uL (130-400); RED BLOOD CELL COUNT 3.84 mill/uL (4.2-5.4); RED CELL DISTRIBUTION WIDTH 14.9 % (11.6-14.6)
[2021-11-14 07:51] LABS: CHLORIDE 103 mEq/L (98-107)
[2021-11-14] MEDS ORDERED: VANCOMYCIN 1G PREMIX 200 ML IV ONE (08:00)
[2021-11-14] MEDS ORDERED: PIPERACILLIN/TAZ 3.375G PREMIX 50 ML IV ONE (08:00)
[2021-11-14 08:37] LABS: CLARITY URINE CLEAR (CLEAR); COLOR URINE YELLOW (YELLOW); KETONES URINE NEGATIVE (NEGATIVE); LEUKOCYTE ESTERASE URINE NEGATIVE (NEGATIVE); NITRITE URINE NEGATIVE (NEGATIVE); OCCULT BLOOD URINE 2+ (NEGATIVE); PH URINE 6.5 (4.5-8.0); PROTEIN URINE 4+ (NEGATIVE); SPECIFIC GRAVITY URINE 1.016 (1.005-1.030); UROBILINOGEN URINE 0.2 E.U./dL (0.2-1.0)
[2021-11-14 09:05] LABS: BG CARBOXYHEMOGLOBIN 0.1 % (0.5-1.5); BG DEOXYHEMOGLOBIN 0.4 % (0.0-5.0); BG FRACTION INSPIRED OXYGEN 100; BG HCO3 ACT 19.3 mmol/L (22.0-26.0); BG METHEMOGLOBIN 0.4 % (0.0-1.5); BG OXYGEN SATURATION 99.6 % (92.0-98.5); BG OXYHEMOGLOBIN 99.1 % (94.0-97.0); BG PCO2 37.2 mmHg (35.0-45.0); BG PH 7.332 (7.350-7.450); BG PO2 409.8 mmHg (75.0-100.0); BG SAMPLE SITE LEFT BRACHIAL; BG VENT MODE VENT - AC
[2021-11-14] MEDS ORDERED: IPRATROPIUM/ALBUTEROL 0.5-3(2.5)MG/3ML NEB NEB PRN (09:45)
[2021-11-14] MEDS ORDERED: NITROGLYCERIN 0.4MG TABLET SL SL PRN (09:45)
[2021-11-14] MEDS ORDERED: GUAIFENESIN 200MG/10ML SUGAR FREE UDC PO PRN (09:45)
[2021-11-14] MEDS ORDERED: ONDANSETRON HCL 4MG/2ML INJ IV PRN (09:45)
[2021-11-14] MEDS ORDERED: AMLODIPINE 10MG TABLET PO SCH (09:45)
[2021-11-14] MEDS ORDERED: ZOLPIDEM TARTRATE 5MG TABLET PO PRN ×2 (09:45)
[2021-11-14] MEDS ORDERED: ENOXAPARIN 40MG/0.4ML SYR SUBCUT SCH (09:45)
[2021-11-14] MEDS ORDERED: MAGNESIUM/ALUMINUM HYDROXIDE/SIMETHICONE 30ML UDC PO PRN (09:45)
[2021-11-14] MEDS ORDERED: DOCUSATE SODIUM 100MG CAPSULE PO PRN (09:45)
[2021-11-14 10:32] LABS: T4 FREE 1.5 ng/dL (0.76-1.46)
[2021-11-14 10:45] LABS: FOLIC ACID (FOLATE) SERUM >20 ng/mL ng/mL (>5.38); VITAMIN B12 SERUM 570 pg/mL (211-911)
[2021-11-14] MEDS: DEXT 5%/LACTATED RINGERS 1,000 ML IV SCH ×2 (10:45→23:18)
[2021-11-14] MEDS: ENOXAPARIN 30MG/0.3ML SYR SUBCUT SCH (11:44)
[2021-11-14] MEDS: DEXAMETHASONE 10 MG/ML VIAL IV SCH (11:44)
[2021-11-14] MEDS: PROPOFOL 10MG/ML 100ML 100 ML IV PRN ×2 (13:19→17:32)
[2021-11-14] MEDS: CLONIDINE 0.1MG TABLET PO PRN ×2 (13:20→21:53)
[2021-11-14] MEDS ORDERED: PIPERACILLIN/TAZ 3.375G PREMIX 50 ML IV SCH (14:00)
[2021-11-14] MEDS ORDERED: FENTANYL 2500MCG/250ML PMX 250 ML IV PRN (14:15)
[2021-11-14] MEDS ORDERED: FUROSEMIDE 40MG/4ML VIAL IVP SCH (15:00)
[2021-11-14] MEDS: PIPERACILLIN/TAZOBACTAM 3.375G in DEXT 5% WATER 50ML IV SCH ×2 (15:47→21:53)
[2021-11-14] MEDS: IPRATROPIUM/ALBUTEROL 0.5-3(2.5)MG/3ML NEB HHN SCH ×2 (16:02→20:46)
[2021-11-14 18:24] LABS: CREATINE KINASE MB FRACTION 1.9 ng/mL (0.5-3.6)
[2021-11-14] MEDS ORDERED: METOPROLOL TARTRATE 25MG TABLET PO SCH (21:00)
[2021-11-14] MEDS: LISINOPRIL 20MG TABLET PO SCH (21:53)
[2021-11-14] MEDS: ASCORBIC ACID 500 MG TABLET PO SCH (21:54)
[2021-11-15] VITALS (97 sets, daily range): BP systolic 76–187; BP diastolic 36–119
[2021-11-15 00:29] LABS: CREATINE KINASE MB FRACTION 1.3 ng/mL (0.5-3.6)
[2021-11-15] MEDS: PROPOFOL 10MG/ML 100ML 100 ML IV PRN ×4 (00:34→20:53)
[2021-11-15] MEDS: IPRATROPIUM/ALBUTEROL 0.5-3(2.5)MG/3ML NEB HHN SCH ×6 (00:39→20:19)
[2021-11-15] MEDS: PIPERACILLIN/TAZOBACTAM 3.375G in DEXT 5% WATER 50ML IV SCH ×3 (05:33→21:23)
[2021-11-15 06:13] LABS: HEMOGLOBIN. 10.3 g/dL (12.0-16.0); MEAN CORPUSCULAR HEMOGLOBIN 33.6 pg (28.0-32.0); PLATELET 130 x1000/uL (130-400); RED BLOOD CELL COUNT 3.06 mill/uL (4.2-5.4); RED CELL DISTRIBUTION WIDTH 14.3 % (11.6-14.6)
[2021-11-15 06:26] LABS: CHLORIDE 102 mEq/L (98-107)
[2021-11-15 06:32] LABS: PHOSPHORUS 3.5 mg/dL (2.5-4.9)
[2021-11-15] MEDS: PANTOPRAZOLE SODIUM 40 MG/VIAL IV SCH (08:08)
[2021-11-15] MEDS: DEXAMETHASONE 10 MG/ML VIAL IV SCH (08:08)
[2021-11-15] MEDS: ASPIRIN 325MG EC TABLET PO SCH (08:09)
[2021-11-15] MEDS: LISINOPRIL 20MG TABLET PO SCH ×2 (08:09→20:47)
[2021-11-15] MEDS: CHOLECALCIFEROL (D3) 1000 UNIT TABLET PO SCH (08:09)
[2021-11-15] MEDS: ASCORBIC ACID 500 MG TABLET PO SCH ×2 (08:09→20:49)
[2021-11-15] MEDS: ZINC SULFATE 220 MG ( 50 ) CAPSULE PO SCH (08:09)
[2021-11-15] MEDS: ENOXAPARIN 30MG/0.3ML SYR SUBCUT SCH (08:12)
[2021-11-15 08:14] LABS: BG BASE EXCESS -6.3 mmol/L (-2.0-2.0); BG CARBOXYHEMOGLOBIN 0.2 % (0.5-1.5); BG DEOXYHEMOGLOBIN 4.5 % (0.0-5.0); BG FRACTION INSPIRED OXYGEN 40; BG HCO3 ACT 16.1 mmol/L (22.0-26.0); BG METHEMOGLOBIN 1.2 % (0.0-1.5); BG OXYGEN SATURATION 95.4 % (92.0-98.5); BG OXYHEMOGLOBIN 94.1 % (94.0-97.0); BG PCO2 23.7 mmHg (35.0-45.0); BG PH 7.451 (7.350-7.450); BG PO2 83.9 mmHg (75.0-100.0); BG SAMPLE SITE RIGHT RADIAL; BG TOTAL HEMOGLOBIN 11.1 g/dL (12.0-18.0); BG VENT MODE VENT - AC/VC
[2021-11-15 08:39] LABS: PLATELET ESTIMATE NORMAL
[2021-11-15] MEDS ORDERED: VANCOMYCIN 750 MG in DEXT 5% WATER 250 ML IV SCH ×4 (09:00)
[2021-11-15 10:43] LABS: *AMPHETAMINES SCREEN URINE NEGATIVE (NEGATIVE); *BARBITURATES SCREEN URINE NEGATIVE (NEGATIVE); *BENZODIAZEPINES SCREEN URINE NEGATIVE (NEGATIVE); *COCAINE SCREEN URINE NEGATIVE (NEGATIVE); CANNABINOID URINE SCREEN NEGATIVE (NEGATIVE); METHADONE URINE SCREEN NEGATIVE (NEGATIVE); OPIATES URINE SCREEN PRESUMTIVE POSITIVE (NEGATIVE); PHENCYCLIDINE URINE SCREEN NEGATIVE (NEGATIVE)
[2021-11-15] MEDS ORDERED: DEXTROSE 50% WATER 50ML SYRINGE IV PRN (11:15)
[2021-11-15] MEDS ORDERED: BLOOD SUGAR DIAGNOSTIC STRIP TEST SCH (11:30)
[2021-11-15] MEDS: BLOOD SUGAR DIAGNOSTIC STRIP TEST SCH ×3 (11:47→22:03)
[2021-11-15] MEDS: DEXT 5%/LACTATED RINGERS 1,000 ML IV SCH (12:07)
[2021-11-15] MEDS: INSULIN LISPRO 100 UNITS/ML SUBCUT SCH ×3 (12:08→22:02)
[2021-11-16] VITALS (80 sets, daily range): BP systolic 52–228; BP diastolic 25–136
[2021-11-16] MEDS: IPRATROPIUM/ALBUTEROL 0.5-3(2.5)MG/3ML NEB HHN SCH ×5 (00:23→16:00)
[2021-11-16] MEDS: CLONIDINE 0.1MG TABLET PO PRN ×2 (00:40→20:07)
[2021-11-16] MEDS: DEXT 5%/LACTATED RINGERS 1,000 ML IV SCH (03:01)
[2021-11-16] MEDS: PROPOFOL 10MG/ML 100ML 100 ML IV PRN (04:09)
[2021-11-16] MEDS: PIPERACILLIN/TAZOBACTAM 3.375G in DEXT 5% WATER 50ML IV SCH ×3 (05:33→21:12)
[2021-11-16] MEDS: BLOOD SUGAR DIAGNOSTIC STRIP TEST SCH ×4 (05:51→21:10)
[2021-11-16] MEDS: INSULIN LISPRO 100 UNITS/ML SUBCUT SCH ×4 (05:54→21:00)
[2021-11-16 08:07] LABS: BG BASE EXCESS -6.7 mmol/L (-2.0-2.0); BG CARBOXYHEMOGLOBIN 0.3 % (0.5-1.5); BG DEOXYHEMOGLOBIN 1.5 % (0.0-5.0); BG HCO3 ACT 16.8 mmol/L (22.0-26.0); BG METHEMOGLOBIN 0.3 % (0.0-1.5); BG OXYGEN SATURATION 98.5 % (92.0-98.5); BG OXYHEMOGLOBIN 97.9 % (94.0-97.0); BG PCO2 27.4 mmHg (35.0-45.0); BG PH 7.405 (7.350-7.450); BG PO2 143.1 mmHg (75.0-100.0); BG SAMPLE SITE RIGHT RADIAL; BG TOTAL HEMOGLOBIN 10.7 g/dL (12.0-18.0); BG VENT MODE VENT - AC
[2021-11-16] MEDS: ENOXAPARIN 30MG/0.3ML SYR SUBCUT SCH (09:00)
[2021-11-16] MEDS ORDERED: POTASSIUM CHLORIDE 20MEQ/PACKET PO NR (09:15)
[2021-11-16] MEDS: CHOLECALCIFEROL (D3) 1000 UNIT TABLET PO SCH (09:23)
[2021-11-16] MEDS: DEXAMETHASONE 10 MG/ML VIAL IV SCH (09:23)
[2021-11-16] MEDS: ASPIRIN 325MG EC TABLET PO SCH (09:23)
[2021-11-16] MEDS: ASCORBIC ACID 500 MG TABLET PO SCH ×2 (09:23→20:07)
[2021-11-16] MEDS ORDERED: MORPHINE SULFATE 2 MG/ML CPJ (NOT FOR IM USE) IV ONE (09:30)
[2021-11-16] MEDS: PANTOPRAZOLE SODIUM 40 MG/VIAL IV SCH (09:31)
[2021-11-16] MEDS: ZINC SULFATE 220 MG ( 50 ) CAPSULE PO SCH (09:31)
[2021-11-16] MEDS: LISINOPRIL 20MG TABLET PO SCH ×2 (09:32→21:13)
[2021-11-16 09:37] LABS: BG BASE EXCESS -6.3 mmol/L (-2.0-2.0); BG CARBOXYHEMOGLOBIN 0.3 % (0.5-1.5); BG DEOXYHEMOGLOBIN 1.6 % (0.0-5.0); BG HCO3 ACT 17.3 mmol/L (22.0-26.0); BG METHEMOGLOBIN 0.4 % (0.0-1.5); BG OXYGEN SATURATION 98.4 % (92.0-98.5); BG OXYHEMOGLOBIN 97.7 % (94.0-97.0); BG PCO2 28.2 mmHg (35.0-45.0); BG PH 7.405 (7.350-7.450); BG PO2 130.1 mmHg (75.0-100.0); BG SAMPLE SITE RIGHT RADIAL; BG VENT MODE VENT - CPAP
[2021-11-16 10:16] LABS: HEMATOCRIT. 30.2 % (36.0-48.0); MEAN CORPUSCULAR HEMOGLOBIN 32.9 pg (28.0-32.0); MEAN CORPUSCULAR VOLUME 98.9 fL (81.0-99.0); MEAN PLATELET VOLUME 9.1 fl (7.4-10.4); PLATELET 156 x1000/uL (130-400); RED BLOOD CELL COUNT 3.05 mill/uL (4.2-5.4); RED CELL DISTRIBUTION WIDTH 14.6 % (11.6-14.6)
[2021-11-16] MEDS: SODIUM BICARBONATE 100 MEQ in SODIUM CHLORIDE 0.45% 1,000 ML IV SCH (11:37)
[2021-11-16] MEDS: ACETAMINOPHEN 325MG TABLET PO PRN ×2 (12:16→20:07)
[2021-11-17] VITALS (47 sets, daily range): BP systolic 131–181; BP diastolic 43–107
[2021-11-17] MEDS: CLONIDINE 0.1MG TABLET PO PRN (02:50)
[2021-11-17] MEDS: PIPERACILLIN/TAZOBACTAM 3.375G in DEXT 5% WATER 50ML IV SCH ×3 (05:30→21:19)
[2021-11-17] MEDS: SODIUM BICARBONATE 100 MEQ in SODIUM CHLORIDE 0.45% 1,000 ML IV SCH (05:30)
[2021-11-17] MEDS: BLOOD SUGAR DIAGNOSTIC STRIP TEST SCH ×3 (05:30→17:12)
[2021-11-17] MEDS: INSULIN LISPRO 100 UNITS/ML SUBCUT SCH ×4 (05:31→17:00)
[2021-11-17 05:46] LABS: HEMATOCRIT. 28.1 % (36.0-48.0); HEMOGLOBIN. 9.3 g/dL (12.0-16.0); MEAN CORPUSCULAR HEMOGLOBIN 32.8 pg (28.0-32.0); MEAN PLATELET VOLUME 9.1 fl (7.4-10.4); PLATELET 149 x1000/uL (130-400); RED BLOOD CELL COUNT 2.84 mill/uL (4.2-5.4); RED CELL DISTRIBUTION WIDTH 14.5 % (11.6-14.6)
[2021-11-17 05:53] LABS: CHLORIDE 101 mEq/L (98-107)
[2021-11-17 06:01] LABS: PHOSPHORUS 5.2 mg/dL (2.5-4.9)
[2021-11-17] MEDS ORDERED: KETOROLAC 15MG/ML VIAL IV PRN (07:45)
[2021-11-17 08:28] LABS: PLATELET ESTIMATE NORMAL
[2021-11-17] MEDS: LISINOPRIL 20MG TABLET PO SCH ×2 (09:20→21:19)
[2021-11-17] MEDS: ASCORBIC ACID 500 MG TABLET PO SCH ×2 (09:20→21:19)
[2021-11-17] MEDS: ASPIRIN 325MG EC TABLET PO SCH (09:20)
[2021-11-17] MEDS: CHOLECALCIFEROL (D3) 1000 UNIT TABLET PO SCH (09:20)
[2021-11-17] MEDS: ZINC SULFATE 220 MG ( 50 ) CAPSULE PO SCH (09:20)
[2021-11-17] MEDS: PANTOPRAZOLE SODIUM 40 MG/VIAL IV SCH (09:20)
[2021-11-17] MEDS: FOLIC ACID/VITAMIN B COMP W-C TABLET PO SCH (09:20)
[2021-11-17] MEDS: ENOXAPARIN 30MG/0.3ML SYR SUBCUT SCH (09:21)
[2021-11-17] MEDS: DEXAMETHASONE 10 MG/ML VIAL IV SCH (09:21)
[2021-11-17] MEDS: PREGABALIN 25MG CAPSULE PO SCH ×2 (09:28→21:19)
[2021-11-17] MEDS ORDERED: ALBUTEROL 6.7GM HFA INHALER ORI PRN (11:00)
[2021-11-17 13:24] LABS: NUCLEATED RED BLOOD CELLS 1 /100 WBC
[2021-11-17 13:25] LABS: PLATELET ESTIMATE NORMAL
[2021-11-17] MEDS: ACETAMINOPHEN 325MG TABLET PO PRN (18:20)
[2021-11-18] VITALS (43 sets, daily range): BP systolic 116–193; BP diastolic 37–142
[2021-11-18] MEDS: BLOOD SUGAR DIAGNOSTIC STRIP TEST SCH ×4 (00:09→17:12)
[2021-11-18] MEDS: SODIUM BICARBONATE 100 MEQ in SODIUM CHLORIDE 0.45% 1,000 ML IV SCH ×2 (00:18→16:40)
[2021-11-18] MEDS: CLONIDINE 0.1MG TABLET PO PRN ×4 (00:18→19:02)
[2021-11-18] MEDS: PIPERACILLIN/TAZOBACTAM 3.375G in DEXT 5% WATER 50ML IV SCH ×3 (05:34→21:50)
[2021-11-18] MEDS: INSULIN LISPRO 100 UNITS/ML SUBCUT SCH ×4 (05:35→21:00)
[2021-11-18] MEDS: ASPIRIN 325MG EC TABLET PO SCH (08:00)
[2021-11-18] MEDS: FOLIC ACID/VITAMIN B COMP W-C TABLET PO SCH (08:00)
[2021-11-18] MEDS: ASCORBIC ACID 500 MG TABLET PO SCH ×2 (08:00→21:49)
[2021-11-18] MEDS: ZINC SULFATE 220 MG ( 50 ) CAPSULE PO SCH (08:00)
[2021-11-18] MEDS: LISINOPRIL 20MG TABLET PO SCH ×2 (08:00→21:49)
[2021-11-18] MEDS: PREGABALIN 25MG CAPSULE PO SCH ×2 (08:00→21:49)
[2021-11-18] MEDS: CHOLECALCIFEROL (D3) 1000 UNIT TABLET PO SCH (08:00)
[2021-11-18] MEDS: PANTOPRAZOLE SODIUM 40 MG/VIAL IV SCH (08:01)
[2021-11-18] MEDS: DEXAMETHASONE 10 MG/ML VIAL IV SCH (08:01)
[2021-11-18] MEDS: ENOXAPARIN 30MG/0.3ML SYR SUBCUT SCH (08:01)
[2021-11-18 10:16] LABS: BG BASE EXCESS -1.3 mmol/L (-2.0-2.0); BG CARBOXYHEMOGLOBIN 0.3 % (0.5-1.5); BG DEOXYHEMOGLOBIN 2.7 % (0.0-5.0); BG FRACTION INSPIRED OXYGEN 28; BG HCO3 ACT 23.2 mmol/L (22.0-26.0); BG METHEMOGLOBIN 0.3 % (0.0-1.5); BG OXYGEN SATURATION 97.3 % (92.0-98.5); BG OXYHEMOGLOBIN 96.7 % (94.0-97.0); BG PH 7.403 (7.350-7.450); BG PO2 97.5 mmHg (75.0-100.0); BG SAMPLE SITE RIGHT RADIAL; BG TOTAL HEMOGLOBIN 10.8 g/dL (12.0-18.0); BG VENT MODE NASAL CANNULA
[2021-11-18] MEDS: AMLODIPINE 5MG TABLET PO SCH ×2 (12:03→21:49)
[2021-11-19] VITALS: BP 164/87
[2021-11-19 04:00] VITALS: BP 164/87
[2021-11-19] MEDS: BLOOD SUGAR DIAGNOSTIC STRIP TEST SCH ×4 (06:47→17:00)
[2021-11-19] MEDS: PIPERACILLIN/TAZOBACTAM 3.375G in DEXT 5% WATER 50ML IV SCH (06:48)
[2021-11-19] MEDS: INSULIN LISPRO 100 UNITS/ML SUBCUT SCH ×4 (06:48→21:00)
[2021-11-19 08:00] VITALS: BP 154/82
[2021-11-19] MEDS: ASCORBIC ACID 500 MG TABLET PO SCH ×2 (09:48→22:43)
[2021-11-19] MEDS: ASPIRIN 325MG EC TABLET PO SCH (09:48)
[2021-11-19] MEDS: ACETAMINOPHEN 325MG TABLET PO PRN (09:48)
[2021-11-19] MEDS: FOLIC ACID/VITAMIN B COMP W-C TABLET PO SCH (09:48)
[2021-11-19] MEDS: CHOLECALCIFEROL (D3) 1000 UNIT TABLET PO SCH (09:48)
[2021-11-19] MEDS: PANTOPRAZOLE SODIUM 40 MG/VIAL IV SCH (09:49)
[2021-11-19] MEDS: AMLODIPINE 5MG TABLET PO SCH ×2 (09:49→22:44)
[2021-11-19] MEDS: PREGABALIN 25MG CAPSULE PO SCH ×2 (09:49→22:43)
[2021-11-19] MEDS: ZINC SULFATE 220 MG ( 50 ) CAPSULE PO SCH (09:49)
[2021-11-19] MEDS: DEXAMETHASONE 10 MG/ML VIAL IV SCH (09:49)
[2021-11-19] MEDS: LISINOPRIL 20MG TABLET PO SCH ×2 (09:49→22:45)
[2021-11-19] MEDS: ENOXAPARIN 30MG/0.3ML SYR SUBCUT SCH (09:50)
[2021-11-19 12:00] VITALS: BP 129/86
[2021-11-19] MEDS: CLONIDINE 0.1MG TABLET PO PRN (14:55)
[2021-11-19] MEDS ORDERED: PHENOL/SODIUM PHENOLATE 1.4% SRPAY 177ML MM NR ×2 (15:30→17:00)
[2021-11-19 16:00] VITALS: BP 148/83
[2021-11-19 20:00] VITALS: BP 178/97
[2021-11-20] VITALS: BP 136/94
[2021-11-20] MEDS: BLOOD SUGAR DIAGNOSTIC STRIP TEST SCH ×5 (00:25→21:00)
[2021-11-20 04:00] VITALS: BP 190/92
[2021-11-20] MEDS: INSULIN LISPRO 100 UNITS/ML SUBCUT SCH ×4 (06:27→21:02)
[2021-11-20 07:11] LABS: HEMATOCRIT. 34.1 % (36.0-48.0); HEMOGLOBIN. 11.8 g/dL (12.0-16.0); MEAN CORPUSCULAR VOLUME 98.1 fL (81.0-99.0); MEAN PLATELET VOLUME 8.3 fl (7.4-10.4); PLATELET 208 x1000/uL (130-400); RED BLOOD CELL COUNT 3.47 mill/uL (4.2-5.4); RED CELL DISTRIBUTION WIDTH 14.3 % (11.6-14.6)
[2021-11-20 08:00] VITALS: BP 176/96
[2021-11-20] MEDS: AMLODIPINE 5MG TABLET PO SCH ×2 (09:49→21:00)
[2021-11-20] MEDS: DEXAMETHASONE 10 MG/ML VIAL IV SCH (09:49)
[2021-11-20] MEDS: ZINC SULFATE 220 MG ( 50 ) CAPSULE PO SCH (09:49)
[2021-11-20] MEDS: FOLIC ACID/VITAMIN B COMP W-C TABLET PO SCH (09:49)
[2021-11-20] MEDS: PREGABALIN 25MG CAPSULE PO SCH ×2 (09:50→21:00)
[2021-11-20] MEDS: ASCORBIC ACID 500 MG TABLET PO SCH ×2 (09:50→20:59)
[2021-11-20] MEDS: ASPIRIN 325MG EC TABLET PO SCH (09:50)
[2021-11-20] MEDS: FAMOTIDINE 20MG TABLET PO SCH (09:50)
[2021-11-20] MEDS: LISINOPRIL 20MG TABLET PO SCH ×2 (09:50→20:59)
[2021-11-20] MEDS: CHOLECALCIFEROL (D3) 1000 UNIT TABLET PO SCH (09:51)
[2021-11-20] MEDS: ENOXAPARIN 30MG/0.3ML SYR SUBCUT SCH (09:51)
[2021-11-20 12:00] VITALS: BP 171/94
[2021-11-20 13:37] LABS: PLATELET ESTIMATE NORMAL
[2021-11-20] MEDS: CLONIDINE 0.1MG TABLET PO PRN ×2 (14:09→23:54)
[2021-11-20 16:00] VITALS: BP 159/87
[2021-11-20 20:00] VITALS: BP 177/93
[2021-11-21] VITALS: BP 177/93
[2021-11-21 04:00] VITALS: BP 137/76
[2021-11-21] MEDS: BLOOD SUGAR DIAGNOSTIC STRIP TEST SCH ×4 (06:40→21:01)
[2021-11-21] MEDS: INSULIN LISPRO 100 UNITS/ML SUBCUT SCH ×4 (07:10→21:27)
[2021-11-21 08:00] VITALS: BP 156/112
[2021-11-21] MEDS: PREGABALIN 25MG CAPSULE PO SCH ×2 (09:24→21:27)
[2021-11-21] MEDS: FAMOTIDINE 20MG TABLET PO SCH (09:24)
[2021-11-21] MEDS: DEXAMETHASONE 10 MG/ML VIAL IV SCH (09:24)
[2021-11-21] MEDS: ASPIRIN 325MG EC TABLET PO SCH (09:24)
[2021-11-21] MEDS: ZINC SULFATE 220 MG ( 50 ) CAPSULE PO SCH (09:24)
[2021-11-21] MEDS: AMLODIPINE 5MG TABLET PO SCH ×2 (09:24→21:26)
[2021-11-21] MEDS: LISINOPRIL 20MG TABLET PO SCH ×2 (09:24→21:27)
[2021-11-21] MEDS: CHOLECALCIFEROL (D3) 1000 UNIT TABLET PO SCH (09:24)
[2021-11-21] MEDS: ASCORBIC ACID 500 MG TABLET PO SCH ×2 (09:24→21:27)
[2021-11-21] MEDS: FOLIC ACID/VITAMIN B COMP W-C TABLET PO SCH (09:24)
[2021-11-21] MEDS: ENOXAPARIN 30MG/0.3ML SYR SUBCUT SCH (09:25)
[2021-11-21 12:00] VITALS: BP 161/77
[2021-11-21] MEDS ORDERED: ALBUTEROL 6.7GM HFA INHALER ORI SCH (12:45)
[2021-11-21] MEDS: ACETAMINOPHEN 325MG TABLET PO PRN (14:50)
[2021-11-21 16:00] VITALS: BP 146/75
[2021-11-21 20:00] VITALS: BP 167/86
[2021-11-22] VITALS: BP 144/107
[2021-11-22 04:00] VITALS: BP 166/99
[2021-11-22] MEDS: BLOOD SUGAR DIAGNOSTIC STRIP TEST SCH ×2 (05:55→11:40)
[2021-11-22] MEDS: INSULIN LISPRO 100 UNITS/ML SUBCUT SCH ×2 (05:56→12:10)
[2021-11-22] MEDS: CHOLECALCIFEROL (D3) 1000 UNIT TABLET PO SCH (09:02)
[2021-11-22] MEDS: DEXAMETHASONE 10 MG/ML VIAL IV SCH (09:02)
[2021-11-22] MEDS: ENOXAPARIN 30MG/0.3ML SYR SUBCUT SCH (09:02)
[2021-11-22] MEDS: ASPIRIN 325MG EC TABLET PO SCH (09:02)
[2021-11-22] MEDS: PREGABALIN 25MG CAPSULE PO SCH (09:03)
[2021-11-22] MEDS: FAMOTIDINE 20MG TABLET PO SCH (09:03)
[2021-11-22] MEDS: ZINC SULFATE 220 MG ( 50 ) CAPSULE PO SCH (09:03)
[2021-11-22] MEDS: ASCORBIC ACID 500 MG TABLET PO SCH (09:03)
[2021-11-22] MEDS: FOLIC ACID/VITAMIN B COMP W-C TABLET PO SCH (09:03)
[2021-11-22] MEDS: LISINOPRIL 20MG TABLET PO SCH (09:04)
[2021-11-22] MEDS: AMLODIPINE 5MG TABLET PO SCH (09:04)
[2021-11-22 14:35] LABS: BG BASE EXCESS -3.3 mmol/L (-2.0-2.0); BG CARBOXYHEMOGLOBIN 0.1 % (0.5-1.5); BG DEOXYHEMOGLOBIN 4.8 % (0.0-5.0); BG FRACTION INSPIRED OXYGEN 21; BG HCO3 ACT 20.7 mmol/L (22.0-26.0); BG METHEMOGLOBIN 0.3 % (0.0-1.5); BG OXYGEN SATURATION 95.2 % (92.0-98.5); BG OXYHEMOGLOBIN 94.8 % (94.0-97.0); BG PCO2 34.2 mmHg (35.0-45.0); BG PO2 70.9 mmHg (75.0-100.0); BG SAMPLE SITE RIGHT BRACHIAL; BG TOTAL HEMOGLOBIN 13.4 g/dL (12.0-18.0); BG VENT MODE VBG - N/A
[2021-11-22] MEDS ORDERED: LYR25 PO ×2 (14:35→17:21)
[2021-11-22] MEDS ORDERED: ZINC220C2 PO ×3 (14:35→17:27)
[2021-11-22] MEDS ORDERED: NEPVIT PO ×2 (14:35)
[2021-11-22] MEDS ORDERED: ASCO500T20 PO ×2 (14:35)
[2021-11-22 16:51] VITALS: BP 136/68
[2021-11-22] MEDS ORDERED: ASCO500C15 PO (17:27)
[2021-11-22] MEDS ORDERED: FOLI1TAB63 PO (17:27)
== END 2021-11-22 18:20 | disposition home health service (06) | DRG 720 ==
LOC: ER 06:56 → MICUSO 08:58 → SUPCPDRO 09:40 → ENRESERV 12:19 → 7EST 11-18 18:45
PROVIDERS: ADMIT Internal Medicine; ATTEND Internal Medicine
PROC: 0BH17EZ Insertion of Endotracheal Airway into Trachea, Via Natural or Artificial Opening (ICD-10-PCS; principal; 2021-11-14)
PROC: 5A1945Z Respiratory Ventilation, 24-96 Consecutive Hours (ICD-10-PCS; 2021-11-14)
PROC: 06HY33Z Insertion of Infusion Device into Lower Vein, Percutaneous Approach (ICD-10-PCS; 2021-11-14)
PROC: B54BZZA Ultrasonography of Right Lower Extremity Veins, Guidance (ICD-10-PCS; 2021-11-14)
DX: A41.89 Other specified sepsis (principal); J96.01 Acute respiratory failure with hypoxia; J12.82 Pneumonia due to coronavirus disease 2019; N17.0 Acute kidney failure with tubular necrosis; E44.1 Mild protein-calorie malnutrition; G92.8 Other toxic encephalopathy; I50.33 Acute on chronic diastolic (congestive) heart failure; U07.1 COVID-19; E78.00 Pure hypercholesterolemia, unspecified; A41.1 Sepsis due to other specified staphylococcus; E11.9 Type 2 diabetes mellitus without complications; E87.1 Hypo-osmolality and hyponatremia; I16.0 Hypertensive urgency; R65.20 Severe sepsis without septic shock; I11.0 Hypertensive heart disease with heart failure; E03.9 Hypothyroidism, unspecified; I25.10 Atherosclerotic heart disease of native coronary artery without angina pectoris; E87.2 Acidosis; M19.90 Unspecified osteoarthritis, unspecified site; M06.9 Rheumatoid arthritis, unspecified; Z79.899 Other long term (current) drug therapy; Z90.49 Acquired absence of other specified parts of digestive tract; Z90.710 Acquired absence of both cervix and uterus; Z86.73 Personal history of transient ischemic attack (TIA), and cerebral infarction without residual deficits; Z79.4 Long term (current) use of insulin; Z78.1 Physical restraint status; Z68.27 Body mass index [BMI] 27.0-27.9, adult; Z88.8 Allergy status to other drugs, medicaments and biological substances; Z88.5 Allergy status to narcotic agent; Z88.6 Allergy status to analgesic agent; Z91.041 Radiographic dye allergy status
CPT/HCPCS: 31500; 36415; 36600; 71045; 78580; 80048; 80053; 80061; 80202; 80305; 81003; 82375; 82550; 82553; 82607; 82728; 82746; 82805; 82962; 83036; 83540; 83550; 83605; 83735; 83880; 84100; 84439; 84443; 84478; 84484; 85025; 85379; 86140; 87070; 87426; 92610; 93005; 93880; 93970; 94002; 94003; 94640; 97162; 97166; 99291; C9113; C9803; J1100; J1650; J1815; J1940; J2543; J2704; J3370; J3490; J7060